=== PATIENT | female | born 1985 | race Two or more races ===

== ENCOUNTER → 2021-10-23 16:10 | Outpatient (BNVA) | payer OTHER, SELFPAY | PROVIDERS: PCP Internal Medicine; Visit Provider Obstetrics & Gynecology | DX: Z13.89 Encounter for screening for other disorder (principal) ==

== ENCOUNTER → 2021-11-05 15:05 | Outpatient (BNVA) | payer OTHER, SELFPAY | PROVIDERS: PCP Internal Medicine; Visit Provider Obstetrics & Gynecology | DX: Z30.432 Encounter for removal of intrauterine contraceptive device (principal) | CPT/HCPCS: 58301; 81025 ==

== ENCOUNTER 2022-04-10 13:04 | Inpatient (IN) | payer OTHER, SELFPAY ==
--- NOTE | ~2022-04-10 | US_ITS ---
EXAMINATION: US PELVIS CLINICAL INFORMATION: Left lower quadrant pain COMPARISON: None TECHNIQUE: Ultrasound of the pelvis is performed using both transabdominal and transvaginal transducers along with Doppler. Transvaginal imaging is performed due to inadequate visualization transabdominally. FINDINGS: Uterus: The uterus is anteverted, retroflexed and measures 9.3 cm in length, 3.7 cm in AP and 4.1 cm in transverse direction. The double wall endometrial thickness is 0.8 cm. The uterus is smooth in contour and has normal myometrial echogenicity. No visible fibroid. There are small nabothian cysts seen in the cervix. The cervix is slightly thickened. Adnexa: Both ovaries are visualized. There is normal color flow to the adnexa. There is no ovarian torsion. There is no pelvic ascites or fluid collection. Right ovary measures 3.1 x 2.6 x 2.9 cm and volume 12.2 mL. There is anechoic simple cyst measuring 2.10 2.0 x 2.1 cm. Left ovary measures 2.7 x 2.6 x 1.6 cm and volume 5.9 mL. There is no free fluid in the cul-de-sac. Incidental note is made of 2 echogenic stones in the left distal ureter/UVJ measuring 0.4 x 0.3 x 0.4 cm and 0.3 x 0.4 x 0.3 cm. US/US pelvic and transvaginal IMPRESSION: Unremarkable uterus. Thickened cervix with nabothian cysts. Simple cyst right ovary. Unremarkable left ovary. 2 echogenic stones in the left UVJ or distal ureter. Simple cyst right ovary.
--- NOTE | ~2022-04-10 | US_ITS ---
EXAMINATION: US PELVIS CLINICAL INFORMATION: Left lower quadrant pain COMPARISON: None TECHNIQUE: Ultrasound of the pelvis is performed using both transabdominal and transvaginal transducers along with Doppler. Transvaginal imaging is performed due to inadequate visualization transabdominally. FINDINGS: Uterus: The uterus is anteverted, retroflexed and measures 9.3 cm in length, 3.7 cm in AP and 4.1 cm in transverse direction. The double wall endometrial thickness is 0.8 cm. The uterus is smooth in contour and has normal myometrial echogenicity. No visible fibroid. There are small nabothian cysts seen in the cervix. The cervix is slightly thickened. Adnexa: Both ovaries are visualized. There is normal color flow to the adnexa. There is no ovarian torsion. There is no pelvic ascites or fluid collection. Right ovary measures 3.1 x 2.6 x 2.9 cm and volume 12.2 mL. There is anechoic simple cyst measuring 2.10 2.0 x 2.1 cm. Left ovary measures 2.7 x 2.6 x 1.6 cm and volume 5.9 mL. There is no free fluid in the cul-de-sac. Incidental note is made of 2 echogenic stones in the left distal ureter/UVJ measuring 0.4 x 0.3 x 0.4 cm and 0.3 x 0.4 x 0.3 cm. US/US pelvic ovarian doppler IMPRESSION: Unremarkable uterus. Thickened cervix with nabothian cysts. Simple cyst right ovary. Unremarkable left ovary. 2 echogenic stones in the left UVJ or distal ureter. Simple cyst right ovary.
--- NOTE | ~2022-04-10 | CT_ITS ---
EXAMINATION: CT ABDOMEN AND PELVIS WITHOUT CONTRAST CLINICAL INFORMATION: Flank pain. Rule out pyelonephritis. COMPARISON: None TECHNIQUE: Multidetector volumetric imaging was performed from the superior aspect of the liver through the pubic symphysis. Sagittal and coronal reformatted images were obtained on the technologist's workstation. This CT examination was performed using dose optimization techniques as appropriate, variously including the following: *Automated exposure control *Adjustment of mA and/or kV according to patient size (this includes techniques or standardized protocols for targeted exams where dose is matched to indication/reason for exam; i.e. extremities or head) *Use of iterative reconstruction technique DLP: 631 mGy-cm FINDINGS: LUNG BASES: The lung bases are clear. The heart size is normal. LIVER, GALLBLADDER, AND BILIARY TREE: The liver is normal in size, shape, and attenuation. No focal hepatic lesion or biliary ductal dilatation is present. The gallbladder is unremarkable with no evidence of radiopaque gallstones, gallbladder wall thickening, or obvious pericholecystic inflammatory changes. PANCREAS: Unremarkable. SPLEEN: Unremarkable. ADRENAL GLANDS: Unremarkable. KIDNEYS AND URETERS: The kidneys are normal in size, shape, and attenuation. There is a 3 mm nonobstructive radiopaque calculi lower pole calyx left kidney. No additional radiopaque calculi seen. There is mild left hydroureteronephrosis secondary to an obstructive 2 mm and 4 mm left UVJ radiopaque calculi. BLADDER: The bladder is nondistended without any bladder wall thickening. GASTROINTESTINAL TRACT: Scattered stool and gas is seen throughout the colon without distention. Few scattered diverticuli seen in the colon. The small bowel loops are normal caliber. Appendix is normal caliber. No free air or free fluid seen. ABDOMINAL WALL: A small lumbar canal hernia containing fat is noted. LYMPH NODES: Normal. VASCULAR: Unremarkable. PELVIC VISCERA: The uterus is anteverted and appears unremarkable. No adnexal mass or free fluid seen. OSSEOUS STRUCTURES: No lytic or sclerotic process seen. CT/CT abdomen pelvis wo IV con IMPRESSION: Two 4 mm and 2 mm obstructive radiopaque calculi left UVJ with mild hydroureteronephrosis. Nonobstructive 3 mm radiopaque calculi lower pole right kidney. Fleischner guidelines were followed.
--- NOTE | ~2022-04-10 | FL_ITS ---
EXAMINATION: XR FLUOROSCOPY WITH IMAGES CLINICAL INFORMATION: Ureteral stone COMPARISON: 04/10/2022 TECHNIQUE: Fluoroscopy performed by Dr Montaño. Fluoroscopy time: 46.5 seconds. Cumulative Dose: 15.45 mGy. Images: 5. FL/FL guidance in OR FINDINGS/IMPRESSION: Again seen are 2 stones within the distal left ureter. Images show cannulation of the left ureter, and placement of a left nephroureteral stent. Please see operative report for additional detail.
[2022-04-10 13:26] VITALS: BP 145/92; PULSE 93; RESP 18; TEMP 36.6; O2SAT 99; BMI 30.2
[2022-04-10 13:56] LABS: MANUAL DIFF FLAG NO
[2022-04-10 13:59] LABS: Basophils Absolute Auto 0.1 X10*3/uL (0.0-0.2); Basophils Percent Auto 0.7 % (0-2); Eosinophils Absolute Auto 0.2 X10*3/uL (0.0-0.4); Eosinophils Percent Auto 1.1 % (0-4); Hematocrit 40.5 % (37.0-47.0); Hemoglobin 13.2 g/dl (12.0-16.0); Imm Gran Abs Auto 0.05 X10*3/uL (0.00-0.03); Imm Gran Pct Auto 0.4 % (0.0-0.4); Lymphocytes Absolute Auto 2.7 X10*3/uL (1.2-4.9); Lymphocytes Percent Auto 19.8 % (20-40); Mean Corpuscular HGB Conc 32.6 g/dl (31.0-35.0); Mean Corpuscular Hemoglobin 30.1 pg (27.0-33.0); Mean Corpuscular Volume 92.3 fL (80.0-98.0); Mean Platelet Volume 10.6 fL (9.4-12.3); Monocytes Percent Auto 7.5 % (2-11); Neutrophils Absolute Auto 9.6 x10*3/uL (2.0-8.3); Neutrophils Percent Auto 70.5 % (45-73); Platelet Count 261 X10*3/uL (160-400); Red Blood Count 4.39 X10*6/uL (4.20-5.50); Red Cell Distribution Width 12.5 % (11.0-16.0); White Blood Count 13.6 X10*3/uL (4.8-10.8)
[2022-04-10 14:00] LABS: Appearance Urine Clear; Color Urine Yellow; Glucose Urine UA Negative (Negative); Leukocyte Esterase Urine Small (1+) (Negative); Nitrite Urine Negative (Negative); PH 5.5 (5.0-9.0); UMIC TRIGGER UACC YES; Urine Blood Large (3+) (Negative); Urine Ketones Negative (Negative); Urine Protein Trace mg/dL (Neg-Trace)
[2022-04-10 14:02] LABS: UPreg QC Valid YES; Urine Pregnancy NEGATIVE (NEGATIVE)
[2022-04-10 14:13] LABS: Bacteria Urine None Seen (None Seen); Hyaline Casts Urine 0-2 /LPF (0-2); RBC Urine >20 /HPF (0-2); Squamous Epithelial Cell Urine 0-2 /HPF (0-2); UACC Culture Trigger YES
[2022-04-10 14:17] LABS: Alanine Aminotransferase 11 U/L (0-31); Albumin Level 4.3 g/dL (3.5-5.0); Alkaline Phosphatase 64 U/L (39-117); Anion Gap 13 (12-20); Aspartate Amino Transferase 17 U/L (5-31); Bilirubin Direct 0.2 mg/dL (0.0-0.5); Bilirubin Total 0.3 mg/dL (0.0-1.0); Blood Urea Nitrogen 13 mg/dL (9-16); Calcium 9.2 mg/dL (8.4-10.2); Carbon Dioxide 24 mmol/L (22-29); Chloride 106 mmol/L (96-108); Creatinine Clr Calc Pharmacy 102.5; Estimated Glomerular Filt Rate > 60; Glucose Random 84 mg/dL (60-115); Lipase 9 U/L (8-78); Sodium 139 mmol/L (135-145); Total Protein 7.2 g/dL (6.5-8.0)
[2022-04-10 16:20] VITALS: BP 124/80; PULSE 64; RESP 18; TEMP 36.5; O2SAT 100
--- NOTE | 2022-04-10 17:11 | ED.FEMALEGU ---
HPI - Female Genitourinary General Chief complaint: Urogenital-Female Stated complaint: kidney pain Time Seen by Provider: 04/10/22 16:58 Source: patient Mode of arrival: ambulatory Limitations: no limitations History of Present Illness HPI Narrative: 36 year old female history of anxiety, asthma, eczema, HPV, ovarian cysts presenting with 3-4 weeks of severe pelvic pain and b/l flank pain worsening over past few days. Patient reports b/l flank pain that is constant in nature described as an aching pain. She also reports what she describes as LLQ pain and pelvic pain that is 8/10 in intensity severe sharp and intermittent. Pain is so severe at times she has episodes of nausea. At times, worsened with intercourse. Reports urine is darker than usual and cloudy. Denies dysuria and frequency. Tells me no hx of kidney stones or pylo. Tells me this doesn't feel like her typical ovarian cyst pain. Reports poor po intake due to n/v and pain, had cranberry juice today. Denies fevers, chills, cp, sob. No concerns for STDs or Related Data Home Medications Medication Instructions Recorded Confirmed levonorgestrel 20 mcg/24 hours (8 intrauterine 06/19/20 06/19/20 yrs) 52 mg intrauterine device (Mirena) Previous Rx's Medication Instructions Recorded albuterol sulfate 90 mcg/actuation 1 inh inhalation QID PRN shortness 06/19/20 aerosol inhaler (ProAir HFA) of breath or wheezing #8.5 grams multivitamin 1 tab PO DAILY #90 tabs 07/24/20 Allergies Allergy/AdvReac Type Severity Reaction Status Date / Time latex Allergy Unknown unknown Verified 10/23/21 16:10 Review of Systems Review of Systems: Constitutional : No Weight loss, No Fever, No Chills, No Fatigue, No Malaise ENT/Mouth : No sore throat, No Rhinorrhea Eyes: No Eye Pain, No Swelling, No Redness Cardiovascular : No Chest Pain, No SOB, No Dyspnea on Exertion, No Orthopnea, No Edema, No Palpitations Respiratory : No Cough, No Sputum, No Wheezing Gastrointestinal : No Nausea, + Vomiting, No Diarrhea, No Constipation, No abdominal Pain, No Hematochezia, No Melena Genitourinary : No Dysuria, No Urinary Frequency, No Hematuria, + pelvic pain Musculoskeletal : No joint pain, No Myalgias, No Joint Swelling Skin : No Skin Lesions, No rash Neuro : No Weakness, No Numbness, No Dizziness, No Headache Psych : No Anxiety/Panic, No Depression All other systems reviewed and are negative Yes all other systems are reviewed and are negative [facility] Past Medical History Attestation statement: The following information was validated with the patient. Source: old records reviewed and nursing notes reviewed Medical History Anxiety disorder Cigarette smoker motivated to quit Eczema of both hands Mild intermittent asthma without complication Surgical History History of section Family History Family History Father Medical history non-contributory Mother Hypothyroidism CVD (cardiovascular disease) Maternal Grandfather Diabetes mellitus Maternal Grandmother Diabetes mellitus Paternal Grandmother Diabetes mellitus Paternal Grandfather Diabetes mellitus Maternal Aunt Cerebral aneurysm Maternal Uncle Skin cancer Brother No problems noted. Brother No problems noted. Sister No problems noted. Son No problems noted. Social History Social History Alcohol intake: current Patient Tobacco Use Status: Current someday Tobacco user Cigarettes Per Day: 1 Advance Directives: No Advance Directives Information Provided: No Patient : No Physical Exam Vital Signs: Vital Signs: Last Vital Signs Temp 97.7 F 04/10/22 18:36 Pulse 75 04/10/22 18:36 Resp 14 04/10/22 18:36 BP 137/77 04/10/22 18:36 Pulse Ox 95 04/10/22 18:36 O2 Del Method 04/10/22 18:36 BMI result Body Mass Index 30.2 VSS Appearance: Alert.? Oriented X3.? No acute distress.? Head: Normocephalic, atraumatic, no step-offs or deformities Eyes: Pupils equal, round and reactive to light.? ENT: Pharynx normal.??External ears normal, TMs normal bilaterally and EAC's normal. No pain with manipulation of external ears bilaterally. No mastoid tenderness. Neck: Normal inspection.? Neck supple.? CVS: Normal heart rate and rhythm.? Pulses normal.? Respiratory: No respiratory distress.? Breath sounds normal.? Abdomen: Soft and + LLQ tenderness.? Skin: Skin warm and dry.? Normal skin color.? Normal skin turgor.? Extremities: No lower extremity edema.? No calf ttp. 5/5 strength to bilateral upper and lower extremities Back: No midline tenderness, no C-spine tenderness, full range of motion, no CVA tenderness bilaterally Neuro: Oriented X 3.? No motor deficit.? No sensory deficit. CN 2-12 intact Course Reevaluation(s) Reevaluation #1: CBC with slight leukocytosis likely reactive to nausea and vomiting, chemistry with no acute electrolyte abnormalities requiring intervention. HCG negative in urine negative. UA without infection. Pending US and CT abd and pelvis. Time: 18:09 Reevaluation #2: Ultrasound pelvic transvaginal with thickened cervix with nabothian cysts, simple cyst to the right ovary, unremarkable left ovary. Two echogenic stones in the left UVJ or distal ureter. No signs of ovarian torsion. CT of the abdomen and pelvis with 2 4 mm and 2 mm obstructive the radiopaque colic you lie in the left UVJ with mild hydroureter nephrosis. There is also a 3 mm stone in the lower pole the right kidney. At this time patient will be admitted to the hospitalist team for pain management, and further evaluation. Time: 19:52 MDM - Female Genitourinary MDM Narrative Medical decision making narrative: 1710 36 yo female presents with LLQ/ pelvic pain and b/l flank pain X 3-4 weeks. Was encouraged to come in by her OBGYN Dr. Healy PE- with LLQ tenderness on exam Differentials include kidney stones, diverticulitis, uti, endometriosis, ovarian cysts. Unlikely torsion, ruptured cyst, ectopic. Plan- labs, urine, imaging. Medical Records Attestation: I reviewed the patient's medical records. Lab Data Attestation: I reviewed the patient's lab results. Result diagrams: 04/10/22 13:51 04/10/22 13:51 Labs: Lab Results 04/10/22 04/10/22 04/10/22 Range/Units 13:51 13:51 13:51 WBC 13.6 H (4.8-10.8) X10*3/uL RBC 4.39 (4.20-5.50) X10*6/uL Hgb 13.2 (12.0-16.0) g/dl Hct 40.5 (37.0-47.0) % MCV 92.3 (80.0-98.0) fL MCH 30.1 (27.0-33.0) pg MCHC 32.6 (31.0-35.0) g/dl RDW 12.5 (11.0-16.0) % Plt Count 261 (160-400) X10*3/uL MPV 10.6 (9.4-12.3) fL Immature Gran % (Auto) 0.4 (0.0-0.4) % Neut % (Auto) 70.5 (45-73) % Lymph % (Auto) 19.8 L (20-40) % [place] % (Auto) 7.5 (2-11) % Eos % (Auto) 1.1 (0-4) % Baso % (Auto) 0.7 (0-2) % Lymph # (Auto) 2.7 (1.2-4.9) X10*3/uL [place] # (Auto) 1.0 (0.1-1.2) X10*3/uL Eos # (Auto) 0.2 (0.0-0.4) X10*3/uL Baso # (Auto) 0.1 (0.0-0.2) X10*3/uL Abs Immat Gran (auto) 0.05 H (0.00-0.03) X10*3/uL Absolute Neuts (auto) 9.6 H (2.0-8.3) x10*3/uL Absolute Nucleated RBC 0.000 (0.0-0.012) X10*3/uL Nucleated RBC % (auto) 0.0 (0.0-0.2) /100WBC Sodium 139 (135-145) mmol/L Potassium 4.0 (3.3-5.1) mmol/L Chloride 106 (96-108) mmol/L Carbon Dioxide 24 (22-29) mmol/L Anion Gap 13 (12-20) BUN 13 (9-16) mg/dL Creatinine 0.79 (0.5-1.4) mg/dL Estim Creat Clear Calc 102.5 Estimated GFR > 60 Random Glucose 84 (60-115) mg/dL Calcium 9.2 (8.4-10.2) mg/dL Total Bilirubin 0.3 (0.0-1.0) mg/dL Direct Bilirubin 0.2 (0.0-0.5) mg/dL AST 17 (5-31) U/L ALT 11 (0-31) U/L Alkaline Phosphatase 64 (39-117) U/L Total Protein 7.2 (6.5-8.0) g/dL Albumin 4.3 (3.5-5.0) g/dL Lipase 9 (8-78) U/L Beta HCG, Quant < 2 mIU/mL Urine Color Yellow Urine Appearance Clear Urine pH 5.5 (5.0-9.0) Ur Specific [place] 1.020 (1.005-1.025) Urine Protein Trace (Neg-Trace) mg/dL Urine Glucose (UA) Negative (Negative) mg/dL Urine Ketones Negative (Negative) mg/dL Urine Blood Large (3+) H (Negative) Urine Nitrite Negative (Negative) Ur Leukocyte Esterase Small (1+) H (Negative) Urine RBC >20 H (0-2) /HPF Urine WBC 11-20 H (0-5) /HPF Ur Squamous Epith Cells 0-2 (0-2) /HPF Urine Bacteria None Seen (None Seen) Hyaline Casts 0-2 (0-2) /LPF Urine Test (NEGATIVE) 04/10/22 Range/Units 13:51 WBC (4.8-10.8) X10*3/uL RBC (4.20-5.50) X10*6/uL Hgb (12.0-16.0) g/dl Hct (37.0-47.0) % MCV (80.0-98.0) fL MCH (27.0-33.0) pg MCHC (31.0-35.0) g/dl RDW (11.0-16.0) % Plt Count (160-400) X10*3/uL MPV (9.4-12.3) fL Immature Gran % (Auto) (0.0-0.4) % Neut % (Auto) (45-73) % Lymph % (Auto) (20-40) % [place] % (Auto) (2-11) % Eos % (Auto) (0-4) % Baso % (Auto) (0-2) % Lymph # (Auto) (1.2-4.9) X10*3/uL [place] # (Auto) (0.1-1.2) X10*3/uL Eos # (Auto) (0.0-0.4) X10*3/uL Baso # (Auto) (0.0-0.2) X10*3/uL Abs Immat Gran (auto) (0.00-0.03) X10*3/uL Absolute Neuts (auto) (2.0-8.3) x10*3/uL Absolute Nucleated RBC (0.0-0.012) X10*3/uL Nucleated RBC % (auto) (0.0-0.2) /100WBC Sodium (135-145) mmol/L Potassium (3.3-5.1) mmol/L Chloride (96-108) mmol/L Carbon Dioxide (22-29) mmol/L Anion Gap (12-20) BUN (9-16) mg/dL Creatinine (0.5-1.4) mg/dL Estim Creat Clear Calc Estimated GFR Random Glucose (60-115) mg/dL Calcium (8.4-10.2) mg/dL Total Bilirubin (0.0-1.0) mg/dL Direct Bilirubin (0.0-0.5) mg/dL AST (5-31) U/L ALT (0-31) U/L Alkaline Phosphatase (39-117) U/L Total Protein (6.5-8.0) g/dL Albumin (3.5-5.0) g/dL Lipase (8-78) U/L Beta HCG, Quant mIU/mL Urine Color Urine Appearance Urine pH (5.0-9.0) Ur Specific [place] (1.005-1.025) Urine Protein (Neg-Trace) mg/dL Urine Glucose (UA) (Negative) mg/dL Urine Ketones (Negative) mg/dL Urine Blood (Negative) Urine Nitrite (Negative) Ur Leukocyte Esterase (Negative) Urine RBC (0-2) /HPF Urine WBC (0-5) /HPF Ur Squamous Epith Cells (0-2) /HPF Urine Bacteria (None Seen) Hyaline Casts (0-2) /LPF Urine Test NEGATIVE (NEGATIVE) Critical Care Time Critical Care Time Critical Care Time: No Discharge Plan Discharge Clinical Impression: Acute flank pain, Pelvic pain, Nausea & vomiting, Kidney stone Patient Disposition: Admitted As Inpatient Instructions: Acute Nausea and Vomiting (ED), Flank Pain (ED), Pelvic Pain (ED) Additional Instructions: Take your medications as prescribed. If you were prescribed antibiotics today, it is important that you take your medication to their entirety, do not skip any doses, do not finish them early. Follow-up with your primary care provider this week. Return to the emergency department with new or worsening symptoms. Such as fevers, chills, chest pain, shortness of breath, nausea, vomiting, dizziness, headache, vision changes, lethargy In case of emergency call 911 Prescriptions: No Action Mirena 20 mcg/24 hours (6 yrs) 52 mg intrauterine device intrauterine albuterol sulfate [ProAir HFA] 90 mcg/actuation HFA aerosol inhaler 1 inh inhalation QID PRN (Reason: shortness of breath or wheezing) Qty: 8.5 1RF multivitamin Tablet 1 tab PO DAILY Qty: 90 1RF Referrals: Olive Zimmer MD [Primary Care Provider] - 2 days
[2022-04-10 17:57] LABS: HCG Quantitative < 2 mIU/mL
[2022-04-10 18:36] VITALS: BP 137/77; PULSE 75; RESP 14; TEMP 36.5; O2SAT 95
[2022-04-10] MEDS: Ketorolac Tromethamine 15 MG/ML VIAL 30 MG IVPUSH (19:00)
[2022-04-10] MEDS: 0.9 % Sodium Chloride 1,000 ML 999 ML IV ×2 (19:00→19:47)
[2022-04-10] MEDS: predniSONE 20 MG TABLET PO (19:47)
[2022-04-10] MEDS: Tamsulosin HCL 0.4 MG CAPSULE PO (19:47)
--- NOTE | 2022-04-10 20:20 | PM.IMHP ---
History of Present Illness Date of Service: 04/10/22 Attending physician on admission: Manny Patricia Chief Complaint: llq/left flank pain 36-year-old female with history of ovarian cysts, mild intermittent asthma, 1cigarette per day trying to quit, and depression/anxiety presented to the ED at the recommendation of walk-in clinic and behavioral health associate ([place]) for evaluation of intermittent 8/10 left lower quadrant/left flank pain ongoing for 3-4 weeks. Over the last 2 days she states pain has worsened and has become more constant. She has noted nausea as well as multiple episodes of vomiting yesterday but denies any vomiting today. She states her urine has been dark but denies any dunia blood. Endorses burning at the end of mictrition and dyspareunia. No abdnormal vaginal discharge or bleeding. No fevers, chills. No history STI. In ED, VSS. WBC 13.6. Renal function and electrolyte normal. UA with 3+blood, 1+leuks, nitrite neg, negative bacteria. Urine negative. Pelvic/transvaginal u/s with doppler showing thickened cervix with nabothian cysts, simple cyst right ovary, unremarkable left ovary. No torsion with normal color flow to adnexa. CT abdomen/pelvis shows 2 4 mm and 2 mm obstructive calculi in the left UVJ with mild hydroureteronephrosis as well as nonobstructive 3 mm radiopaque calculi in the lower pole right kidney. Given ketorolac, flomax, prednisone, and 1L NS. Review of Systems Review of Systems: General: No fevers, malaise, unintentional weight loss Cardiovascular: No chest pain, palpitations, or leg edema Respiratory: No shortness of breath, wheezing, cough GI: +llq pain, +n/v. No diarrhea, constipation, melena, hematochezia : +dysuria, + hematuria. No increased urinary frequency urgency [place] T[employer] Helper:+ dyspareunia. No abnormal vaginal discharge or bleeding Neuro: No headaches, weakness, paresthesias Skin: No rashes or lesions [facility] Medical History Anxiety disorder Cigarette smoker motivated to quit Eczema of both hands Mild intermittent asthma without complication Family History Father Medical history non-contributory Mother Hypothyroidism CVD (cardiovascular disease) Maternal Grandfather Diabetes mellitus Maternal Grandmother Diabetes mellitus Paternal Grandmother Diabetes mellitus Paternal Grandfather Diabetes mellitus Maternal Aunt Cerebral aneurysm Maternal Uncle Skin cancer Brother No problems noted. Brother No problems noted. Sister No problems noted. Son No problems noted. Surgical History History of section Social History Alcohol intake: current Patient Tobacco Use Status: Current someday Tobacco user Cigarettes Per Day: 1 Advance Directives: No Advance Directives Information Provided: No Patient : No Meds Allergies Allergy/AdvReac Type Severity Reaction Status Date / Time latex Allergy Unknown unknown Verified 10/23/21 16:10 Active Medications: Current Medications Acetaminophen (Acetaminophen 325 Mg Tablet) 650 mg PO Q6H PRN PRN Reason: Pain, Mild (Pain Scale 1-3) Docusate Sodium (Docusate Sodium 100 Mg Capsule) 100 mg PO DAILY PRN PRN Reason: Constipation Ketorolac Tromethamine (Ketorolac Tromethamine 30 Mg/Ml Vial) 30 mg IVPUSH Q6H PRN PRN Reason: Pain, Moderate (Pain Scale 4-6 Stop: 04/15/22 20:13 Ondansetron HCl (Ondansetron Hcl 4 Mg/2 Ml Vial) 4 mg IVPUSH Q8H PRN PRN Reason: Nausea and Vomiting Oxycodone HCl (Oxycodone Hcl Immed Release 5 Mg Tablet) 5 mg PO Q6H PRN PRN Reason: Pain, Severe (Pain Scale 7-10) Pharmacy Consult (Consult Rx Perform Med Rec) 1 each MISCELLANE ONCE PRN PRN Reason: Consult order Sodium Chloride (0.9 % Sodium Chloride Flush 3 Ml Syringe) 3 ml IVFLUSH QSHIFT CHADD Tamsulosin HCl (Tamsulosin Hcl 0.4 Mg Capsule) 0.4 mg PO DAILY CHADD Physical Exam Vital Signs and Narrative: Vital Signs: Last Vital Signs Temp 97.7 F 04/10/22 18:36 Pulse 75 04/10/22 18:36 Resp 14 04/10/22 18:36 BP 137/77 04/10/22 18:36 Pulse Ox 95 04/10/22 18:36 O2 Del Method 04/10/22 18:36 BMI result Body Mass Index 30.2 Results Labs CBC and Chem 7: 04/10/22 13:51 04/10/22 13:51 Labs: Laboratory Results - last 24 hr 04/10/22 04/10/22 04/10/22 13:51 13:51 13:51 MCV 92.3 MCH 30.1 MCHC 32.6 RDW 12.5 Plt Count 261 MPV 10.6 Immature Gran % (Auto) 0.4 Neut % (Auto) 70.5 Lymph % (Auto) 19.8 L [place] % (Auto) 7.5 Eos % (Auto) 1.1 Baso % (Auto) 0.7 Lymph # (Auto) 2.7 [place] # (Auto) 1.0 Eos # (Auto) 0.2 Baso # (Auto) 0.1 Abs Immat Gran (auto) 0.05 H Absolute Neuts (auto) 9.6 H Absolute Nucleated RBC 0.000 Nucleated RBC % (auto) 0.0 Anion Gap 13 Estim Creat Clear Calc 102.5 Estimated GFR > 60 Random Glucose 84 Calcium 9.2 Total Bilirubin 0.3 Direct Bilirubin 0.2 AST 17 ALT 11 Alkaline Phosphatase 64 Total Protein 7.2 Albumin 4.3 Lipase 9 Beta HCG, Quant < 2 Urine Color Yellow Urine Appearance Clear Urine pH 5.5 Ur Specific [place] 1.020 Urine Protein Trace Urine Glucose (UA) Negative Urine Ketones Negative Urine Blood Large (3+) H Urine Nitrite Negative Ur Leukocyte Esterase Small (1+) H Urine RBC >20 H Urine WBC 11-20 H Ur Squamous Epith Cells 0-2 Urine Bacteria None Seen Hyaline Casts 0-2 Urine Test 04/10/22 13:51 MCV MCH MCHC RDW Plt Count MPV Immature Gran % (Auto) Neut % (Auto) Lymph % (Auto) [place] % (Auto) Eos % (Auto) Baso % (Auto) Lymph # (Auto) [place] # (Auto) Eos # (Auto) Baso # (Auto) Abs Immat Gran (auto) Absolute Neuts (auto) Absolute Nucleated RBC Nucleated RBC % (auto) Anion Gap Estim Creat Clear Calc Estimated GFR Random Glucose Calcium Total Bilirubin Direct Bilirubin AST ALT Alkaline Phosphatase Total Protein Albumin Lipase Beta HCG, Quant Urine Color Urine Appearance Urine pH Ur Specific [place] Urine Protein Urine Glucose (UA) Urine Ketones Urine Blood Urine Nitrite Ur Leukocyte Esterase Urine RBC Urine WBC Ur Squamous Epith Cells Urine Bacteria Hyaline Casts Urine Test NEGATIVE Imaging Radiologist's Impressions: Impressions Doppler Study Ultrasound 04/10/22 17:48 IMPRESSION: Unremarkable uterus. Thickened cervix with nabothian cysts. Simple cyst right ovary. Unremarkable left ovary. 2 echogenic stones in the left UVJ or distal ureter. Simple cyst right ovary. Pelvic/Transvag US 04/10/22 17:48 IMPRESSION: Unremarkable uterus. Thickened cervix with nabothian cysts. Simple cyst right ovary. Unremarkable left ovary. 2 echogenic stones in the left UVJ or distal ureter. Simple cyst right ovary. Abdomen/Pelvis CT 04/10/22 18:35 IMPRESSION: Two 4 mm and 2 mm obstructive radiopaque calculi left UVJ with mild hydroureteronephrosis. Nonobstructive 3 mm radiopaque calculi lower pole right kidney. Fleischner guidelines were followed. Assessment and Plan (1) Obstructive uropathy: Status: Acute (2) Abdominal pain: Status: Acute (3) Nausea & vomiting: Status: Acute Plan 36-year-old female with history of ovarian cysts, mild intermittent asthma, 1cigarette per day trying to quit, and depression/anxiety to be observed for obstructive nephrolithiasis. #Obstructive uropathy -CT abdomen/pelvis showing 2 left-sided obstructive 4 mm and 2 mm calculi of the UVJ with mild hydroureteronephrosis -pain management with Toradol and oxycodone p.r.n. -ondansetron p.r.n. for nausea/vomiting -received 1 L NS in ED. Encourage p.o. fluids -Flomax and prednisone given in ED. Continue Flomax daily -UA not indicative of UTI at this time. Urine culture pending -leukocytosis 13.1 likely reactive secondary to nausea/vomiting. Repeat CBC am -consider Urology consult if no improvement in symptoms #LLQ/pelvis pain with dyspareunia -has history of ovarian cyst. Transvaginal/pelvic U.S. showing only right-sided simple cyst. No ovarian torsion -pain likely secondary to renal calculi -rule out coronary and chlamydia. Cultures ordered # mild intermittent asthma -albuterol p.r.n. # depression/anxiety-stable # cigarette smoker -working on quitting. Down to 1 cigarette per day -counseling offered DVT prophylaxis-mechanical and ambulation Full code Quality Stroke Does the patient have a stroke diagnosis?: No VTE Prior VTE?: No VTE Risk Level:: Medical - low VTE Device Contraindication: Treatment Not Indicated VTE Drug Contraindication: N/A - Med Ordered
--- NOTE | 2022-04-10 20:37 | PHA.MEDREC ---
Pharmacy Consult ? Medication Reconciliation Pharmacy has completed the medication reconciliation.
[2022-04-10 21:35] VITALS: BP 136/89; PULSE 76; RESP 18; TEMP 36.4; O2SAT 98
--- NOTE | 2022-04-10 21:43 | PC.NURSE ---
report to Patricia MYLES will transport patient once covid results
[2022-04-10 21:54] LABS: COVID-19 Test Negative (Negative)
[2022-04-10 22:28] VITALS: BMI 32.5
[2022-04-10] MEDS: 0.9 % Sodium Chloride Flush 3 ML SYRINGE IVFLUSH (23:48)
[2022-04-11] VITALS (12 sets, daily range): BP systolic 105–139; BP diastolic 56–90; PULSE 63–96; RESP 16–20; TEMP 36.2–37; O2SAT 96–99; BMI 31.5
[2022-04-11] MEDS: Ketorolac Tromethamine 15 MG/ML VIAL IVPUSH ×2 (00:09→07:27)
[2022-04-11 07:14] LABS: MANUAL DIFF FLAG NO
[2022-04-11 07:18] LABS: Basophils Absolute Auto 0.1 X10*3/uL (0.0-0.2); Basophils Percent Auto 0.4 % (0-2); Eosinophils Percent Auto 0.1 % (0-4); Hematocrit 37.6 % (37.0-47.0); Hemoglobin 12.3 g/dl (12.0-16.0); Imm Gran Abs Auto 0.04 X10*3/uL (0.00-0.03); Imm Gran Pct Auto 0.3 % (0.0-0.4); Lymphocytes Absolute Auto 1.9 X10*3/uL (1.2-4.9); Lymphocytes Percent Auto 14.4 % (20-40); Mean Corpuscular HGB Conc 32.7 g/dl (31.0-35.0); Mean Corpuscular Hemoglobin 30.1 pg (27.0-33.0); Mean Corpuscular Volume 92.2 fL (80.0-98.0); Mean Platelet Volume 11.7 fL (9.4-12.3); Monocytes Absolute Auto 0.9 X10*3/uL (0.1-1.2); Monocytes Percent Auto 6.5 % (2-11); Neutrophils Absolute Auto 10.3 x10*3/uL (2.0-8.3); Neutrophils Percent Auto 78.3 % (45-73); Platelet Count 243 X10*3/uL (160-400); Red Blood Count 4.08 X10*6/uL (4.20-5.50); Red Cell Distribution Width 12.5 % (11.0-16.0); White Blood Count 13.2 X10*3/uL (4.8-10.8)
[2022-04-11] MEDS: Tamsulosin HCL 0.4 MG CAPSULE PO (07:27)
[2022-04-11] MEDS: ondansetron HCL 4 MG/2 ML VIAL IVPUSH ×2 (07:27→18:07)
[2022-04-11] MEDS: 0.9 % Sodium Chloride Flush 3 ML SYRINGE IVFLUSH ×2 (07:27→19:25)
--- NOTE | 2022-04-11 08:30 | P.PNIM_ITS ---
Subjective Subjective Date of Service: 04/11/22 Interval History: f/u kidney stone with abd pain interval history: still with pain, n/v Review of Systems +nausea abd pain no fever Physical Exam Vital Signs: Vital Signs: Last Vital Signs Temp 97.3 F 04/11/22 07:17 Pulse 85 04/11/22 07:17 Resp 18 04/11/22 07:17 BP 133/79 04/11/22 07:17 Pulse Ox 97 04/11/22 07:17 O2 Del Method 04/11/22 07:17 BMI result Body Mass Index 32.5 Const: Other: General: AO X 3, no acute distress Resp: CTA bilateral CVS: S1,S2,RRR GI: +BS, NT, no distention Skin: No rash Neuro: motor grossly intact Psych: appropriate affect Objective Data Active Medications Acetaminophen (Acetaminophen 325 Mg Tablet) 650 mg PO Q6H PRN PRN Reason: Pain, Mild (Pain Scale 1-3) Docusate Sodium (Docusate Sodium 100 Mg Capsule) 100 mg PO DAILY PRN PRN Reason: Constipation Lactated Ringer's (Lr) 1,000 mls @ 80 mls/hr IVCONT .[id number] [facility] Ketorolac Tromethamine (Ketorolac Tromethamine 15 Mg/Ml Vial) 15 mg IVPUSH Q6H PRN PRN Reason: Pain, Moderate (Pain Scale 4-6 Last Admin: 04/11/22 07:27 Dose: 15 mg Documented By: COTEMA Ondansetron HCl (Ondansetron Hcl 4 Mg/2 Ml Vial) 4 mg IVPUSH Q8H PRN PRN Reason: Nausea and Vomiting Last Admin: 04/11/22 07:27 Dose: 4 mg Documented By: COTEMA Oxycodone HCl (Oxycodone Hcl Immed Release 5 Mg Tablet) 5 mg PO Q6H PRN PRN Reason: Pain, Severe (Pain Scale 7-10) Pharmacy Consult (Consult Rx Perform Med Rec) 1 each MISCELLANE ONCE PRN PRN Reason: Consult order Sodium Chloride (0.9 % Sodium Chloride Flush 3 Ml Syringe) 3 ml IVFLUSH [facility] Last Admin: 04/11/22 07:27 Dose: 3 ml Documented By: COTEMA Tamsulosin HCl (Tamsulosin Hcl 0.4 Mg Capsule) 0.4 mg PO DAILY [facility] Last Admin: 04/11/22 07:27 Dose: 0.4 mg Documented By: GEOFFREY Labs CBC & Chem 7: 04/11/22 06:40 04/10/22 13:51 Labs: Laboratory Results - last 24 hr 04/10/22 04/10/22 04/10/22 13:51 13:51 13:51 MCV 92.3 MCH 30.1 MCHC 32.6 RDW 12.5 Plt Count 261 MPV 10.6 Immature Gran % (Auto) 0.4 Neut % (Auto) 70.5 Lymph % (Auto) 19.8 L [place] % (Auto) 7.5 Eos % (Auto) 1.1 Baso % (Auto) 0.7 Lymph # (Auto) 2.7 [place] # (Auto) 1.0 Eos # (Auto) 0.2 Baso # (Auto) 0.1 Abs Immat Gran (auto) 0.05 H Absolute Neuts (auto) 9.6 H Absolute Nucleated RBC 0.000 Nucleated RBC % (auto) 0.0 Anion Gap 13 Estim Creat Clear Calc 102.5 Estimated GFR > 60 Random Glucose 84 Calcium 9.2 Total Bilirubin 0.3 Direct Bilirubin 0.2 AST 17 ALT 11 Alkaline Phosphatase 64 Total Protein 7.2 Albumin 4.3 Lipase 9 Beta HCG, Quant < 2 Urine Color Yellow Urine Appearance Clear Urine pH 5.5 Ur Specific [place] 1.020 Urine Protein Trace Urine Glucose (UA) Negative Urine Ketones Negative Urine Blood Large (3+) H Urine Nitrite Negative Ur Leukocyte Esterase Small (1+) H Urine RBC >20 H Urine WBC 11-20 H Ur Squamous Epith Cells 0-2 Urine Bacteria None Seen Hyaline Casts 0-2 Urine Test COVID-19 (KRISTIN) COVID-19 Clin Com 04/10/22 04/10/22 04/11/22 13:51 21:33 06:40 MCV 92.2 MCH 30.1 MCHC 32.7 RDW 12.5 Plt Count 243 MPV 11.7 Immature Gran % (Auto) 0.3 Neut % (Auto) 78.3 H Lymph % (Auto) 14.4 L [place] % (Auto) 6.5 Eos % (Auto) 0.1 Baso % (Auto) 0.4 Lymph # (Auto) 1.9 [place] # (Auto) 0.9 Eos # (Auto) 0.0 Baso # (Auto) 0.1 Abs Immat Gran (auto) 0.04 H Absolute Neuts (auto) 10.3 H Absolute Nucleated RBC 0.000 Nucleated RBC % (auto) 0.0 Anion Gap Estim Creat Clear Calc Estimated GFR Random Glucose Calcium Total Bilirubin Direct Bilirubin AST ALT Alkaline Phosphatase Total Protein Albumin Lipase Beta HCG, Quant Urine Color Urine Appearance Urine pH Ur Specific [place] Urine Protein Urine Glucose (UA) Urine Ketones Urine Blood Urine Nitrite Ur Leukocyte Esterase Urine RBC Urine WBC Ur Squamous Epith Cells Urine Bacteria Hyaline Casts Urine Test NEGATIVE COVID-19 (KRISTIN) Negative COVID-19 Clin Com See Note Assessment and Plan (1) Obstructive uropathy: Status: Acute (2) Acute flank pain: Status: Acute (3) Kidney stone: Status: Acute Plan 36-year-old female with history of ovarian cysts, mild intermittent asthma, 1cigarette per day trying to quit, and depression/anxiety to be observed for obstructive nephrolithiasis. #Obstructive uropathy -CT abdomen/pelvis showing 2 left-sided obstructive 4 mm and 2 mm calculi of the UVJ with mild hydroureteronephrosis -pain management with Toradol and oxycodone p.r.n. -ondansetron p.r.n. for nausea/vomiting -IVF -Flomax and prednisone given in ED.? Continue Flomax daily -UA not indicative of UTI at this time.? Urine culture pending -leukocytosis 13.1 likely reactive secondary to nausea/vomiting. -Urology consult, NPO in the event she should need surgery #LLQ/pelvis pain with dyspareunia -has history of ovarian cyst.? Transvaginal/pelvic U.S. showing only right-sided simple cyst.? No ovarian torsion -pain likely secondary to renal calculi -rule out coronary and chlamydia.? Cultures ordered # mild intermittent asthma -albuterol p.r.n. # depression/anxiety-stable # cigarette smoker -working on quitting.? Down to 1 cigarette per day -counseling offered DVT prophylaxis-mechanical and ambulation Full code need for inaptient: obstructive kidney stone that may need intervention Quality Stroke Does the patient have a stroke diagnosis?: No VTE Prior VTE?: No VTE Risk Level:: Medical - low VTE Device Contraindication: Treatment Not Indicated VTE Drug Contraindication: N/A - Med Ordered
[2022-04-11] MEDS: Lactated Ringers 1,000 ML 80 ML IVCONT (08:35)
--- NOTE | 2022-04-11 09:33 | P.CNUR_ITS ---
History of Present Illness Consult details Consult date: 04/11/22 Narrative: Kathrin is a 36 year old female history of anxiety, asthma, eczema, HPV, ovarian cysts presenting with 3-4 weeks of severe pelvic pain and b/l flank pain worsening over past few days. Reports urine is darker than usual and cloudy. Denies dysuria and frequency.? Denies previous kidney stones. Reports poor po intake due to n/v and pain. Denies fevers, chills, cp, sob. Pertinent CT Findings: Two 4 mm and 2 mm obstructive radiopaque calculi left UVJ with mild hydroureteronephrosis.? Nonobstructive 3 mm radiopaque calculi? lower pole right kidney.? Review of Systems Review of Systems: 10 point ROS negative other than stated in HPI [facility] Past Medical History Medical History Anxiety disorder Cigarette smoker motivated to quit Eczema of both hands Mild intermittent asthma without complication Family History Family History Father Medical history non-contributory Mother Hypothyroidism CVD (cardiovascular disease) Maternal Grandfather Diabetes mellitus Maternal Grandmother Diabetes mellitus Paternal Grandmother Diabetes mellitus Paternal Grandfather Diabetes mellitus Maternal Aunt Cerebral aneurysm Maternal Uncle Skin cancer Brother No problems noted. Brother No problems noted. Sister No problems noted. Son No problems noted. Surgical History Surgical History History of section Social History Social History Household Members: Spouse Housing: Apartment Do you presently have visiting nurse or other home services: No Alcohol intake: current Patient Tobacco Use Status: Current everyday Tobacco user Cigarettes Per Day: 1 Smoked in Last 30 Days: Yes Patient Interested in Nicotine Replacement: No Patient Given Instructions on How to Stop Smoking: No Second Hand Smoke Exposure: No Use of substances other than those prescribed or required for medical reasons: No Substance Use Frequency: Socially Currently Displaying Signs/Symptoms of Drug Intoxication Withdrawal: No Have you been hit, kicked, punched, or otherwise hurt by someone within the past year? If so, by whom?: No Do you feel safe in your current relationship?: Yes Is there a partner from a previous relationship who is making you feel unsafe now?: No Are you made to feel afraid or neglected: No Advance Directives: No Advance Directives Information Provided: No Do you have thoughts of harming others: None Do you have a plan to hurt others: No Plan Recently lost weight without trying: No Nutrition Risks: No Nutritional Risk Patient : No : No Meds Allergies Allergy/AdvReac Type Severity Reaction Status Date / Time latex Allergy Unknown unknown Verified 10/23/21 16:10 Active Medications: Current Medications Acetaminophen (Acetaminophen 325 Mg Tablet) 650 mg PO Q6H PRN PRN Reason: Pain, Mild (Pain Scale 1-3) Docusate Sodium (Docusate Sodium 100 Mg Capsule) 100 mg PO DAILY PRN PRN Reason: Constipation Lactated Ringer's (Lr) 1,000 mls @ 80 mls/hr IVCONT .[id number] [facility] Last Admin: 04/11/22 08:35 Dose: 80 mls/hr Ketorolac Tromethamine (Ketorolac Tromethamine 15 Mg/Ml Vial) 15 mg IVPUSH Q6H PRN PRN Reason: Pain, Moderate (Pain Scale 4-6 Last Admin: 04/11/22 07:27 Dose: 15 mg Ondansetron HCl (Ondansetron Hcl 4 Mg/2 Ml Vial) 4 mg IVPUSH Q8H PRN PRN Reason: Nausea and Vomiting Last Admin: 04/11/22 07:27 Dose: 4 mg Oxycodone HCl (Oxycodone Hcl Immed Release 5 Mg Tablet) 5 mg PO Q6H PRN PRN Reason: Pain, Severe (Pain Scale 7-10) Pharmacy Consult (Consult Rx Perform Med Rec) 1 each MISCELLANE ONCE PRN PRN Reason: Consult order Sodium Chloride (0.9 % Sodium Chloride Flush 3 Ml Syringe) 3 ml IVFLUSH QSHIFT [facility] Last Admin: 04/11/22 07:27 Dose: 3 ml Tamsulosin HCl (Tamsulosin Hcl 0.4 Mg Capsule) 0.4 mg PO DAILY [facility] Last Admin: 04/11/22 07:27 Dose: 0.4 mg Physical Exam Vital Signs: Vital Signs: Last Vital Signs Temp 97.3 F 04/11/22 07:17 Pulse 85 04/11/22 07:17 Resp 18 04/11/22 07:17 BP 133/79 04/11/22 07:17 Pulse Ox 97 04/11/22 07:17 O2 Del Method 04/11/22 07:17 BMI result Body Mass Index 32.5 Const: General: cooperative, healthy appearing and no acute distress Orien tation/consciousness: patient oriented x3 HEENT: Head: Yes normal to inspection, Yes normocephalic and Yes atraumatic Eyes: Conjunctivae: conjunctivae normal Neck: Neck: Yes normal visual inspection and Yes trachea midline Chest: Chest palpation & inspection: normal inspection of the chest Resp: Effort & Inspection: normal respiratory effort Cardio: Rate: regular rate GI: Inspection: Yes normal to inspection Palpation (GI): Soft to palpation : General: Yes CVA tenderness on the left Back/Spine/Pelvis: Back: CVA tenderness Skin: General skin exam: no rashes or lesions noted Neuro: General: patient oriented x3 Extrem: General: No edema Psych: Appearance: grossly normal Results Labs Result diagrams: 04/11/22 06:40 04/10/22 13:51 Labs: Abnormal lab results 04/10/22 04/10/22 04/11/22 Range/Units 13:51 13:51 06:40 WBC 13.6 H 13.2 H (4.8-10.8) X10*3/uL RBC 4.08 L (4.20-5.50) X10*6/uL Neut % (Auto) 78.3 H (45-73) % Lymph % (Auto) 19.8 L 14.4 L (20-40) % Abs Immat Gran (auto) 0.05 H 0.04 H (0.00-0.03) X10*3/uL Absolute Neuts (auto) 9.6 H 10.3 H (2.0-8.3) x10*3/uL Urine Blood Large (3+) H (Negative) Ur Leukocyte Esterase Small (1+) H (Negative) Urine RBC >20 H (0-2) /HPF Urine WBC 11-20 H (0-5) /HPF Short CBC 04/10/22 04/11/22 Range/Units 13:51 06:40 WBC 13.6 H 13.2 H (4.8-10.8) X10*3/uL Hgb 13.2 12.3 (12.0-16.0) g/dl Hct 40.5 37.6 (37.0-47.0) % Plt Count 261 243 (160-400) X10*3/uL BMP 04/10/22 13:51 Sodium 139 Potassium 4.0 Chloride 106 Carbon Dioxide 24 BUN 13 Creatinine 0.79 Calcium 9.2 Liver Function 04/10/22 Range/Units 13:51 Total Bilirubin 0.3 (0.0-1.0) mg/dL Direct Bilirubin 0.2 (0.0-0.5) mg/dL AST 17 (5-31) U/L ALT 11 (0-31) U/L Alkaline Phosphatase 64 (39-117) U/L Albumin 4.3 (3.5-5.0) g/dL Urine 04/10/22 04/10/22 Range/Units 13:51 13:51 Urine Color Yellow Urine Appearance Clear Urine pH 5.5 (5.0-9.0) Ur Specific [place] 1.020 (1.005-1.025) Urine Protein Trace (Neg-Trace) mg/dL Urine Glucose (UA) Negative (Negative) mg/dL Urine Test NEGATIVE (NEGATIVE) Imaging Abdomen CT scan report/results: report reviewed and image reviewed Additional studies: Date of Service: 04/10/22 EXAMINATION: CT ABDOMEN AND PELVIS WITHOUT CONTRAST? CLINICAL INFORMATION: Flank pain. Rule out pyelonephritis. COMPARISON: None? TECHNIQUE: Multidetector volumetric imaging was performed from the superior aspect of the liver through the pubic symphysis. Sagittal and coronal reformatted images were obtained on the technologist's workstation.? This CT examination was performed using dose optimization techniques as appropriate, variously including the following: *Automated exposure control *Adjustment of mA and/or kV according to patient size (this includes techniques or standardized protocols for targeted exams where dose is matched to indication/reason for exam; i.e. extremities or head) *Use of iterative reconstruction technique DLP: 631 mGy-cm FINDINGS: LUNG BASES: The lung bases are clear. The heart size is normal.? LIVER, GALLBLADDER, AND BILIARY TREE: The liver is normal in size, shape, and attenuation. No focal hepatic lesion or biliary ductal dilatation is present. The gallbladder is unremarkable with no evidence of radiopaque gallstones, gallbladder wall thickening, or obvious pericholecystic inflammatory changes.? PANCREAS: Unremarkable.? SPLEEN: Unremarkable.? ADRENAL GLANDS: Unremarkable.? KIDNEYS AND URETERS: The kidneys are normal in size, shape, and attenuation. There is a 3 mm nonobstructive radiopaque calculi lower pole calyx left kidney. No additional radiopaque calculi seen. There is mild left hydroureteronephrosis secondary to an obstructive 2 mm and 4 mm left UVJ radiopaque calculi.? BLADDER: The bladder is nondistended without any bladder wall thickening.? GASTROINTESTINAL TRACT: Scattered stool and gas is seen throughout the colon without distention. Few scattered diverticuli seen in the colon. The small bowel loops are normal caliber. Appendix is normal caliber. No free air or free fluid seen.? ABDOMINAL WALL: A small lumbar canal hernia containing fat is noted.? LYMPH NODES: Normal. VASCULAR: Unremarkable. PELVIC VISCERA: The uterus is anteverted and appears unremarkable. No adnexal mass or free fluid seen.? OSSEOUS STRUCTURES: No lytic or sclerotic process seen.? IMPRESSION: Two 4 mm and 2 mm obstructive radiopaque calculi left UVJ with mild hydroureteronephrosis.? Nonobstructive 3 mm radiopaque calculi? lower pole right kidney.? Assessment and Plan (1) Obstructive uropathy: Status: Acute (2) Kidney stone: Status: Acute (3) Hydronephrosis: Status: Acute (4) Ureteral stone: Status: Acute Plan Plan for Left ureteroscopy possible laser lithotripsy, left ureteral stent. Risks discussed included but not limited to, blood in the urine, possible need to repeat procedure if stone is not completely fragmented, Irritative voiding symptoms, bladder spasms, urgency. The patient had an opportunity to ask questions regarding treatment plan. All questions were answered. Imaging studies, laboratory studies and physical exam results were discussed and reviewed in detail. No major barriers to understanding were identified. The patient expressed understanding and agreement with the above treatment plan. Procedures Date of Service Date of Service: 04/11/22
[2022-04-11] MEDS: Acetaminophen 325 MG TABLET 650 MG PO (09:57)
--- NOTE | 2022-04-11 12:40 | PC.NURSE ---
Upon assessment of patient, complaining of 10/10 abdominal pain, nausea, inability to drink PO fluids. Pt given PRN zofran and toradol given. DR. Akins made aware urology consult placed, NPO status placed, LR @ 80 mls/hr ordered and hung. pt scheduled for surgical procedure today. will continue to monitor pain and nausea.
--- NOTE | 2022-04-11 15:27 | HO.ANESPROP2 ---
[facility] Active Problems Active Problems: All Active Problems (Updated 04/11/22 @ 12:20 by Rina Montaño MD) Ureteral stone (Acute) Hydronephrosis (Acute) Obstructive uropathy (Acute) Acute flank pain (Acute) Pelvic pain (Acute) Nausea & vomiting (Acute) Kidney stone (Acute) Abdominal pain (Acute) Encounter for IUD removal (Acute) Abnormal urinalysis (Acute) Back pain (Acute) Eczema of both hands (Acute) Cigarette smoker motivated to quit (Acute) Mild intermittent asthma without complication (Acute) Anxiety disorder (Acute) Past Medical History Medical History Anxiety disorder Cigarette smoker motivated to quit Eczema of both hands Mild intermittent asthma without complication Family History Family History Father Medical history non-contributory Mother Hypothyroidism CVD (cardiovascular disease) Maternal Grandfather Diabetes mellitus Maternal Grandmother Diabetes mellitus Paternal Grandmother Diabetes mellitus Paternal Grandfather Diabetes mellitus Maternal Aunt Cerebral aneurysm Maternal Uncle Skin cancer Brother No problems noted. Brother No problems noted. Sister No problems noted. Son No problems noted. Family history of problems with anesthesia: No Surgical History Surgical History History of section History of Problems with Anesthesia: No Social History Social History Household Members: Spouse Housing: Apartment Do you presently have visiting nurse or other home services: No Alcohol intake: current Patient Tobacco Use Status: Current everyday Tobacco user Cigarettes Per Day: 1 Smoked in Last 30 Days: Yes Patient Interested in Nicotine Replacement: No Patient Given Instructions on How to Stop Smoking: No Second Hand Smoke Exposure: No Use of substances other than those prescribed or required for medical reasons: No Substance Use Frequency: Socially Currently Displaying Signs/Symptoms of Drug Intoxication Withdrawal: No Have you been hit, kicked, punched, or otherwise hurt by someone within the past year? If so, by whom?: No Do you feel safe in your current relationship?: Yes Is there a partner from a previous relationship who is making you feel unsafe now?: No Are you made to feel afraid or neglected: No Advance Directives: No Advance Directives Information Provided: No Do you have thoughts of harming others: None Do you have a plan to hurt others: No Plan Recently lost weight without trying: No Nutrition Risks: No Nutritional Risk Patient : No : No Meds Allergies Allergy/AdvReac Type Severity Reaction Status Date / Time latex Allergy Unknown unknown Verified 10/23/21 16:10 Active Medications: Current Medications Acetaminophen (Acetaminophen 325 Mg Tablet) 650 mg PO Q6H PRN PRN Reason: Pain, Mild (Pain Scale 1-3) Last Admin: 04/11/22 09:57 Dose: 650 mg Docusate Sodium (Docusate Sodium 100 Mg Capsule) 100 mg PO DAILY PRN PRN Reason: Constipation Lactated Ringer's (Lr) 1,000 mls @ 80 mls/hr IVCONT .[id number] [facility] Last Admin: 04/11/22 08:35 Dose: 80 mls/hr Ketorolac Tromethamine (Ketorolac Tromethamine 15 Mg/Ml Vial) 15 mg IVPUSH Q6H PRN PRN Reason: Pain, Moderate (Pain Scale 4-6 Last Admin: 04/11/22 07:27 Dose: 15 mg Ondansetron HCl (Ondansetron Hcl 4 Mg/2 Ml Vial) 4 mg IVPUSH Q8H PRN PRN Reason: Nausea and Vomiting Last Admin: 04/11/22 07:27 Dose: 4 mg Oxycodone HCl (Oxycodone Hcl Immed Release 5 Mg Tablet) 5 mg PO Q6H PRN PRN Reason: Pain, Severe (Pain Scale 7-10) Pharmacy Consult (Consult Rx Perform Med Rec) 1 each MISCELLANE ONCE PRN PRN Reason: Consult order Sodium Chloride (0.9 % Sodium Chloride Flush 3 Ml Syringe) 3 ml IVFLUSH QSHIFT [facility] Last Admin: 04/11/22 15:22 Dose: Not Given Tamsulosin HCl (Tamsulosin Hcl 0.4 Mg Capsule) 0.4 mg PO DAILY [facility] Last Admin: 04/11/22 07:27 Dose: 0.4 mg Exam Exam Date and Time: April 11, 2022 1527 Height,Weight and Vital Signs: Height 5 ft 4 in Weight 83.3 kg Last Vital Signs Temp 98.1 F 04/11/22 15:14 Pulse 68 04/11/22 15:14 Resp 18 04/11/22 15:14 BP 105/57 L 04/11/22 15:14 Pulse Ox 99 04/11/22 15:14 O2 Del Method 04/11/22 15:14 Pertinent Lab Results Pertinent Lab Results: Laboratory Tests 04/10/22 04/10/22 04/10/22 13:51 13:51 13:51 WBC 13.6 H RBC 4.39 Hgb 13.2 Hct 40.5 MCV 92.3 MCH 30.1 MCHC 32.6 RDW 12.5 Plt Count 261 MPV 10.6 Immature Gran % (Auto) 0.4 Neut % (Auto) 70.5 Lymph % (Auto) 19.8 L [place] % (Auto) 7.5 Eos % (Auto) 1.1 Baso % (Auto) 0.7 Lymph # (Auto) 2.7 [place] # (Auto) 1.0 Eos # (Auto) 0.2 Baso # (Auto) 0.1 Abs Immat Gran (auto) 0.05 H Absolute Neuts (auto) 9.6 H Absolute Nucleated RBC 0.000 Nucleated RBC % (auto) 0.0 Sodium 139 Potassium 4.0 Chloride 106 Carbon Dioxide 24 Anion Gap 13 BUN 13 Creatinine 0.79 Estim Creat Clear Calc 102.5 Estimated GFR > 60 Random Glucose 84 Calcium 9.2 Total Bilirubin 0.3 Direct Bilirubin 0.2 AST 17 ALT 11 Alkaline Phosphatase 64 Total Protein 7.2 Albumin 4.3 Lipase 9 Beta HCG, Quant < 2 Urine Color Yellow Urine Appearance Clear Urine pH 5.5 Ur Specific [place] 1.020 Urine Protein Trace Urine Glucose (UA) Negative Urine Ketones Negative Urine Blood Large (3+) H Urine Nitrite Negative Ur Leukocyte Esterase Small (1+) H Urine RBC >20 H Urine WBC 11-20 H Ur Squamous Epith Cells 0-2 Urine Bacteria None Seen Hyaline Casts 0-2 Urine Test COVID-19 (KRISTIN) COVID-19 Clin Com 04/10/22 04/10/22 04/11/22 13:51 21:33 06:40 WBC 13.2 H RBC 4.08 L Hgb 12.3 Hct 37.6 MCV 92.2 MCH 30.1 MCHC 32.7 RDW 12.5 Plt Count 243 MPV 11.7 Immature Gran % (Auto) 0.3 Neut % (Auto) 78.3 H Lymph % (Auto) 14.4 L [place] % (Auto) 6.5 Eos % (Auto) 0.1 Baso % (Auto) 0.4 Lymph # (Auto) 1.9 Dewey # (Auto) 0.9 Eos # (Auto) 0.0 Baso # (Auto) 0.1 Abs Immat Gran (auto) 0.04 H Absolute Neuts (auto) 10.3 H Absolute Nucleated RBC 0.000 Nucleated RBC % (auto) 0.0 Sodium Potassium Chloride Carbon Dioxide Anion Gap BUN Creatinine Estim Creat Clear Calc Estimated GFR Random Glucose Calcium Total Bilirubin Direct Bilirubin AST ALT Alkaline Phosphatase Total Protein Albumin Lipase Beta HCG, Quant Urine Color Urine Appearance Urine pH Ur Specific [place] Urine Protein Urine Glucose (UA) Urine Ketones Urine Blood Urine Nitrite Ur Leukocyte Esterase Urine RBC Urine WBC Ur Squamous Epith Cells Urine Bacteria Hyaline Casts Urine Test NEGATIVE COVID-19 (KRISTIN) Negative COVID-19 Clin Com See Note Airway Mallampati Class: II TM Dist: >3cm Neck ROM: Full Assessment and Plan Assessment Anesthesia Assessment: Anesthesia Plan Discussed and Chart Reviewed Final Anesthetic Review Family History of Problems with Anesthesia: No History of Problems with Anesthesia: No NPO: Yes ASA Class: II Final Preanesthetic Review: Meds/Allgs Chart Reviewed, Consent Obtained/Reviewed and Anes Risks/Benef Reviewed Patient Risk: Intermediate Procedure Risk: Low Anesthetic Plan Anesthetic Plan: GA Disposition: Standard PACU
--- NOTE | 2022-04-11 17:52 | W.PM.OPN ---
Operative Note Operative Note Date of Service: 04/11/22 Narrative: PreOperative Diagnosis:?? Left Ureteral stone, Left Hydronephrosis Post Operative Diagnosis:?? Left Hydronephrosis, no ureteral stone visualized Procedure: Cystoscopy, left retrograde, left ureteroscopy left ureteral stent 6 fr x 24 cm Surgeon:?Dr Rina Montaño Anesthesia:? General Indications for procedure: 36 year old female presenting with 3-4 weeks of severe pelvic pain and b/l flank pain worsening over past few days.? Reports poor po intake due to n/v and pain. Pertinent CT Findings: Two stones, 4 mm and 2 mm obstructive at the left UVJ with hydroureteronephrosis.?The patient states she thinks she may have passed the stones but remains in pain. Exam - notes persistent left lower quadrant tenderness, discussed plan to proceed with procedure for further evaluation ureteroscopy and stent placement. The patient is agreeable to plan. Procedure: After informed consent was verified the patient was brought to the operating placed on the OR table in supine position.? General Anesthesia was administered per protocol.? The patient was placed in lithotomy position, prepped and draped in the usual sterile fashion.? Safety pause time-out and side of surgery confirmed.? Antibiotics confirmed. A 22 Tongan cystoscope was inserted transurethrally, there was some resistance as the urethra was mildly stenotic. The bladder was visualized.? Both ureteric orifices were in normal position. The left ureteral orifice was edematous. An open-ended ureteral catheter was passed on the left side and a retrograde examination was performed. there was significant dilation noted in the distal to mid ureter and appeared to show a filling defect. A 2nd guidewire was then passed up into the kidney. The cystoscope was removed, leaving both guidewires in place. One guidewire was used as the safety and was attached to the draping. The semi rigid ureteroscope was passed over the second guidewires into the left ureter. No stone was visualized. One guidewire was then removed. The cystoscope was passed over the safety guidewire. A? 6 Tongan by 24 cm stent was placed into the ureter and renal pelvis under a combination of fluoroscopy and direct visualization. The string was left attached to the stent and taped the the mons pubis. The bladder was emptied.? The rigid cystoscope was removed. ? 2% lidocaine jelly 10 mL was passed transurethrally. Belladonna rectal supository was administered. The patient tolerated the procedure well and was brought to the recovery room in stable condition. Complications: None Drains: Ureteral stent as dictated above
--- NOTE | 2022-04-11 18:08 | PC.NURSE ---
PATIENT COMPLAINTS OF NAUSEA ON ARRIVAL TO MED SURG UNIT. IVF WIDE OPEN. RN RENAL REPEATING ZOFRAN DOSE
[2022-04-12] VITALS: BP 138/76; PULSE 71; RESP 18; TEMP 36.6; O2SAT 98
[2022-04-12] MEDS: Acetaminophen 325 MG TABLET 650 MG PO (00:38)
[2022-04-12] MEDS: Lactated Ringers 1,000 ML 80 ML IVCONT (00:39)
[2022-04-12 03:45] VITALS: BP 131/61; PULSE 58; RESP 18; TEMP 36; O2SAT 98
--- NOTE | 2022-04-12 07:11 | PM.DS ---
DS: Providers Provider Date of Service: 04/12/22 Date of admission: 04/11/22 11:37 Primary care physician: Olive Zimmer MD Consults: 04/11/22 07:46 Consult to Urology Routine Consulting Provider: Jagjit Rivera Reason for consultation: Kidney stones Has provider been notified: No DS: Diagnosis Discharge Diagnosis (1) Obstructive uropathy: Status: Acute (2) Kidney stone: Status: Acute (3) Hydronephrosis: Status: Acute (4) Ureteral stone: Status: Acute DS: Summary Hospital Course Hospital Course: 36-year-old female with history of ovarian cysts, mild intermittent asthma, 1cigarette per day trying to quit, and depression/anxiety presented to the ED at the recommendation of walk-in clinic and 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 Over the last 2 days she states pain has worsened and has become more constant.? She has noted nausea as well as multiple episodes of vomiting yesterday but denies any vomiting today.? She states her urine has been dark but denies any dunia blood.? Endorses burning at the end of mictrition and dyspareunia. No abdnormal vaginal discharge or bleeding. No fevers, chills. No history STI. In ED, VSS. WBC 13.6. Renal function and electrolyte normal.? UA with 3+blood, 1+leuks, nitrite neg, negative bacteria. Urine negative. Pelvic/transvaginal u/s with doppler showing thickened cervix with nabothian cysts, simple cyst right ovary, unremarkable left ovary. No torsion with normal color flow to adnexa.? CT abdomen/pelvis shows 2 4 mm and 2 mm obstructive calculi in the left UVJ with mild hydroureteronephrosis as well as nonobstructive 3 mm radiopaque calculi in the lower pole right kidney. Given ketorolac, flomax, prednisone, and 1L NS. Hospital course:Patient was observed overnight, treated with IV fluid, pain med and then underwent Cystoscopy,? left retrograde, left? ureteroscopy left ureteral stent 6 fr x 24 cm without complication and is to follow up with Dr. Danyel MD Time Spent with Patient Time attestation: Total time spent providing and/or coordinating discharge services: Discharge coordination time: Greater than 30 minutes Quality: Safe Use of Opioids Does Pt have an Active Cancer Diagnosis on the Problem List?: No Quality: Stroke Does the patient have a stroke diagnosis?: No Physical Exam Vital Signs: Vital Signs: Last Vital Signs Temp 96.8 F 04/12/22 03:45 Pulse 58 04/12/22 03:45 Resp 18 04/12/22 03:45 BP 131/61 04/12/22 03:45 Pulse Ox 98 04/12/22 03:45 O2 Del Method 04/12/22 03:45 BMI result Body Mass Index 31.5 Const: Other: General: AO X 3, no acute distress Resp: CTA bilateral CVS: S1,S2,RRR GI: +BS, NT, no distention Skin: No rash Neuro: motor grossly intact Psych: appropriate affect DS: Data Data Completed and Pending Labs on day of discharge: Laboratory Results - last 24 hr 04/11/22 06:40 WBC 13.2 H RBC 4.08 L Hgb 12.3 Hct 37.6 MCV 92.2 MCH 30.1 MCHC 32.7 RDW 12.5 Plt Count 243 MPV 11.7 Immature Gran % (Auto) 0.3 Neut % (Auto) 78.3 H Lymph % (Auto) 14.4 L Ashley % (Auto) 6.5 Eos % (Auto) 0.1 Baso % (Auto) 0.4 Lymph # (Auto) 1.9 Ashley # (Auto) 0.9 Eos # (Auto) 0.0 Baso # (Auto) 0.1 Abs Immat Gran (auto) 0.04 H Absolute Neuts (auto) 10.3 H Absolute Nucleated RBC 0.000 Nucleated RBC % (auto) 0.0 Discharge Plan Discharge Anticipated Discharge Date/Time: 04/12/22 09:14 Patient Disposition: Home Health Service Discharge Diagnosis: Kidney stone, hydronephrosis Referrals: Daisy MELGAR [Outside] - 1 Day (home with VNA, nurse will reach out to you to set up visit.) Olive Zimmer MD [Primary Care Provider] - 2 days Discharge Medications: Continued albuterol sulfate [ProAir HFA] 90 mcg/actuation HFA aerosol inhaler 1 inh inhalation QID PRN (Reason: shortness of breath or wheezing) Qty: 8.5 1RF multivitamin Tablet 1 tab PO DAILY Qty: 90 1RF Discharge Orders: Discharge Order (Routine); Ordered 04/12/22 Ordered By: Venkat Akins Diet: Advance to usual diet Activity on Discharge: As tolerated Stand Alone Forms: Patient Portal Discharge page, Work/School Release Activity Restrictions/Additional Instructions: Take your medications as prescribed. If you were prescribed antibiotics today, it is important that you take your medication to their entirety, do not skip any doses, do not finish them early. Follow-up with your primary care provider this week. Return to the emergency department with new or worsening symptoms. Such as fevers, chills, chest pain, shortness of breath, nausea, vomiting, dizziness, headache, vision changes, lethargy In case of emergency call 911 Care Plan Goals: Full recovery from kidney stone Health Concerns: Kidney stone Plan of Treatment: Follow up with Rina Montaño MD on Thursday Assessment: as above Patient Instructions: Acute Nausea and Vomiting (ED), Flank Pain (ED), Pelvic Pain (ED)
[2022-04-12 08:00] VITALS: BP 134/75; PULSE 69; RESP 18; TEMP 36.7; O2SAT 100
[2022-04-12] MEDS: Tamsulosin HCL 0.4 MG CAPSULE PO (09:05)
--- NOTE | 2022-04-12 09:50 | MHC.CM.PN ---
DP; PT MEDICALLY CLEARED FOR DC HOME WITH VNA SERVICES. REFERRAL FOR NURSING SENT TO [facility] PER PREFERENCE. RN MADE AWARE FAMILY WILL TRANSPORT HOME
--- NOTE | 2022-04-13 16:03 | HO.POSTANES ---
Post Anesthesia Evaluation Post Anesthesia Evaluation Anesthesia: General Endotracheal-GETA Mental Status: Awake Pain Control: Satisfactory Nausea/Vomiting: None Hydration: Adequate Anesthesia-Related Issues: No Anes. Related Issues
== END 2022-04-12 09:57 | disposition home or self-care (01) | DRG 465 ==
LOC: HO.ED 19:53 → HO.EDOVER 20:28 → HO.S3 21:26
PROVIDERS: Physician Assistant; Urology; Admitting Provider Physician Assistant; Emergency Provider Emergency Medicine; PCP Internal Medicine; Visit Provider Internal Medicine
PROC: 0T778DZ Dilation of Left Ureter with Intraluminal Device, Via Natural or Artificial Opening Endoscopic (ICD-10-PCS; principal; 2022-04-11 15:40)
DX: N13.30 Unspecified hydronephrosis (principal); F17.210 Nicotine dependence, cigarettes, uncomplicated; F41.9 Anxiety disorder, unspecified; J45.20 Mild intermittent asthma, uncomplicated; Z71.6 Tobacco abuse counseling; L30.9 Dermatitis, unspecified; Z20.822 Contact with and (suspected) exposure to COVID-19; Z91.040 Latex allergy status; Z79.899 Other long term (current) drug therapy
CPT/HCPCS: 36415; 74176; 76830; 76856; 80053; 81001; 81025; 82248; 83690; 84702; 85025; 87086; 87635; 93975; 99284; C1758; C1769; C2617; J0690; J1885; J2250; J2370; J2405; J3010; Q9967

== ENCOUNTER → 2022-04-14 13:06 | Outpatient (BNVA) | payer OTHER, SELFPAY | PROVIDERS: PCP Internal Medicine; Visit Provider Urology | DX: N20.1 Calculus of ureter (principal); N20.0 Calculus of kidney | CPT/HCPCS: 99212 ==

== ENCOUNTER 2022-07-01 12:37 | Outpatient (REF) | payer OTHER, SELFPAY ==
--- NOTE | ~2022-07-01 | XR_ITS ---
EXAMINATION: XR ABDOMEN KUB CLINICAL INDICATION: Calculus of kidney COMPARISON: CT 04/10/2022 TECHNIQUE: AP view of the abdomen. FINDINGS: Nonobstructive abdominal bowel gas pattern. The right lower pole 3 mm calculus seen on the CT scan is not seen on these radiographs. Left pelvic phleboliths are present; these were visible on the CT scan as well. The previously seen left ureterovesical junction calculi are not definitely seen. XR/XR KUB IMPRESSION: Previously seen urolithiasis not seen by x-ray, either no longer present or not seen for technical reasons.
== END 2022-07-01 12:38 | disposition home or self-care (01) ==
LOC: HO.XRAY 12:37
PROVIDERS: PCP Internal Medicine; Visit Provider Urology
DX: N20.0 Calculus of kidney (principal)
CPT/HCPCS: 74018

== ENCOUNTER 2022-07-09 11:27 | Outpatient (REF) | payer OTHER, SELFPAY ==
[2022-07-09 17:12] LABS: CT PCR NOT DETECTED (Not Detect.); NG PCR NOT DETECTED (Not Detect.)
[2022-07-15 16:29] LABS: HPV mRNA E6/E7 rflx Not Detected (Not Detected)
== END 2022-07-09 11:28 | disposition home or self-care (01) ==
LOC: HO.LNP 11:27
PROVIDERS: PCP Internal Medicine; Visit Provider Obstetrics & Gynecology
DX: Z01.419 Encounter for gynecological examination (general) (routine) without abnormal findings (principal); Z11.51 Encounter for screening for human papillomavirus (HPV); N93.9 Abnormal uterine and vaginal bleeding, unspecified
CPT/HCPCS: 0353U; 87624; 88142

== ENCOUNTER → 2022-07-11 13:30 | Outpatient (BNVA) | payer OTHER, SELFPAY | PROVIDERS: PCP Internal Medicine; Visit Provider Urology | DX: Z13.89 Encounter for screening for other disorder (principal) ==

== ENCOUNTER 2023-01-12 11:26 | Outpatient (REF) | payer OTHER, SELFPAY ==
--- NOTE | ~2023-01-12 | US_ITS ---
EXAMINATION: US RETROPERITONEAL LIMITED (RENAL ONLY) CLINICAL INFORMATION: Calculus of kidney. COMPARISON: X-ray abdomen KUB 07/01/2022. CT abdomen and pelvis without contrast 04/10/2022. TECHNIQUE: Real-time imaging of the kidneys. FINDINGS: RIGHT KIDNEY: 10.8 x 3.9 x 5.3 cm (SAG x AP x TRV). The kidney is normal in size, contour, and echogenicity. Renal cortical thickness is normal. Small right lower pole renal stone measuring 2 mm. No focal parenchymal lesions. No hydronephrosis. LEFT KIDNEY: 10.6 x 5.9 x 5.3 cm (SAG x AP x TRV). The kidney is normal in size, contour, and echogenicity. Renal cortical thickness is normal. No calculi or focal parenchymal lesions. No hydronephrosis. US/US renal BI IMPRESSION: Small right renal stone.
== END 2023-01-12 11:27 | disposition home or self-care (01) ==
LOC: HO.HMGCX 11:26
PROVIDERS: PCP Internal Medicine; Visit Provider Urology
DX: N20.0 Calculus of kidney (principal)
CPT/HCPCS: 76775

== ENCOUNTER 2023-01-21 14:10 | Outpatient (AMB) | payer OTHER, SELFPAY ==
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
== END 2023-01-21 14:44 | disposition home or self-care (01) ==
PROVIDERS: Visit Provider Urology
DX: N20.0 Calculus of kidney (principal)
CPT/HCPCS: 99213

== ENCOUNTER → 2023-01-21 14:10 | Outpatient (BNVA) | payer OTHER, SELFPAY | PROVIDERS: Visit Provider Urology | DX: N20.0 Calculus of kidney (principal) | CPT/HCPCS: 99212 ==

== ENCOUNTER 2023-02-20 11:20 | Outpatient (AMB) | payer OTHER, SELFPAY ==
[2023-02-20 11:44] VITALS: BP 110/70; PULSE 74; O2SAT 98; BMI 30.5
--- NOTE | 2023-02-20 11:44 | MHC.PC.OV ---
Vital Signs 02/20/23 11:44 Height 5 ft 4 in Weight 177 lb 8 oz BMI 30.5 BP 110/70 Blood Pressure Location Lt brachial Position Sitting Pulse 74 Pulse Source Pulse Oximeter Pulse Oximetry (%) 98 Intake Visit Reasons: Bumps underneath armpit Intake Note: pt is here for bumps underneath armpits both side, 1x month Animal Behaviorist Required: No Allergies latex Allergy (Unknown, Verified 02/20/23 12:02) unknown Medication List - Last Reconciled 02/20/23 by Olive Zimmer MD albuterol sulfate 90 mcg/actuation (ProAir HFA) 1 inh inhalation QID PRN cephalexin 500 mg PO Q12H 10 days multivitamin 1 tab PO DAILY pyridoxine (vitamin B6) 100 mg PO DAILY Tobacco use date assessed: 02/20/23 Dental Screening Dental Screen Date: 02/20/23 Did you have a dental visit in the last 12 months?: Yes Did you have a dental problem in the last 6 months where you did not have access to dental care?: No Was dental information given to patient?: Patient has dentist HPI Bumps underneath armpit HPI Details 37-year-old lady here today complaining of mildly pruritic , occasionally painful lesions on her bilateral axillary area, which appears several weeks ago. No history of any recent travel, patient states that lesions. after shaving axillary area. [facility] Medical History (Updated 02/20/23 @ 12:06 by Olive Zimmer MD) Anxiety disorder Cigarette smoker motivated to quit Eczema of both hands Folliculitis Mild intermittent asthma without complication Surgical History History of section Family History Father Medical history non-contributory Mother Hypothyroidism CVD (cardiovascular disease) Maternal Grandfather Diabetes mellitus Maternal Grandmother Diabetes mellitus Paternal Grandmother Diabetes mellitus Paternal Grandfather Diabetes mellitus Maternal Aunt Cerebral aneurysm Maternal Uncle Skin cancer Brother No problems noted. Brother No problems noted. Sister No problems noted. Son No problems noted. Social History Household Members: Spouse Housing: Apartment Do you presently have visiting nurse or other home services: No Alcohol intake: current Patient Tobacco Use Status: Current everyday Tobacco user Cigarettes Per Day: 1 e-Cigarette/Vaping Use: Never Used Second Hand Smoke Exposure: No Cognitive needs: No Hearing needs: No Vision needs: No Review of Systems Const Denies chills, Denies fatigue, Denies fever(s) and Denies malaise Card Denies chest pain, Denies chest pain at rest and Denies lightheadedness Resp Reports no additional complaints Musc Details: Complains of difficulty lifting ending heavy with both hands Skin/Breast Reports as per HPI Endo Denies fatigue Physical exam (Primary Care) Vital Signs: Last Vital Signs Pulse 74 02/20/23 11:44 BP 110/70 02/20/23 11:44 Pulse Ox 98 02/20/23 11:44 BMI result Body Mass Index 30.5 Tobacco/Smoking Status: Tobacco use Status Tobacco use date assessed 02/20/23 02/20/23 11:48 Patient Tobacco Use Status Current everyday Tobacco 02/20/23 11:48 e-Cigarette/Vaping Use Never Used 02/20/23 11:48 Const Other: Alert oriented x3, no acute distress noted ambulatory normal gait, seat covers trimmer present Neck Other: Supple with no lymphadenopathy palpated Chest Chest palpation & inspection: normal inspection of the chest and normal palpation of entire chest wall Breast/axilla palpation: normal palpation of the breasts Skin Other: Erythematous papular pustular lesions scattered on both axillary area, no active drainage seen Neuro General: gait normal, moves all extremities, Normal light touch and pain sensation and no focal motor deficits Assessment and Plan Assessment & Plan (1) Folliculitis: Code(s): L73.9 - Follicular disorder, unspecified Plan: Advised to do use a mild soap, or use benzoyl peroxide wash daily for at least a week. Do not she or wax affected area until infection resolves. Prescription sent for cephalexin 500 mg to take 1 every 12 hours for 10 days. Medications: New cephalexin 500 mg PO Q12H 20 caps 0RF 10 days Coding Level of Care Code Est Pt Level 3 (44554) Diagnoses Folliculitis L73.9
== END 2023-02-20 13:04 | disposition home or self-care (01) ==
PROVIDERS: PCP Internal Medicine; Visit Provider Internal Medicine
DX: L73.9 Follicular disorder, unspecified (principal)
CPT/HCPCS: 99213

== ENCOUNTER 2023-06-15 08:27 | Outpatient (AMB) | payer OTHER, SELFPAY ==
[2023-06-15 08:35] VITALS: BP 130/86; PULSE 72; O2SAT 98; BMI 30.8
--- NOTE | 2023-06-15 08:35 | A.OFFPC_ITS ---
Vital Signs 06/15/23 08:35 Height 5 ft 4 in Weight 179 lb 4 oz BMI 30.8 BP 130/86 Blood Pressure Location Lt brachial Position Sitting Pulse 72 Pulse Source Pulse Oximeter Pulse Oximetry (%) 98 Oxygen Delivery Method Room Air Intake Visit Reasons: Physical exam Intake Note: Pt here for her Annual PE Is last menstrual period known: Yes Last menstrual period: 06/09/23 Allergies latex Allergy (Unknown, Verified 06/15/23 09:37) unknown Medication List - Last Reconciled 06/15/23 by Olive Zimmer MD albuterol sulfate 90 mcg/actuation (ProAir HFA) 1 inh inhalation QID PRN multivitamin 1 tab PO DAILY omega-3 fatty acids 500 mg PO DAILY pyridoxine (vitamin B6) 100 mg PO DAILY Tobacco use date assessed: 06/15/23 Dental Screening Dental Screen Date: 06/15/23 Did you have a dental visit in the last 12 months?: No Did you have a dental problem in the last 6 months where you did not have access to dental care?: No Was dental information given to patient?: No HPI Physical exam HPI Details 37-year-old lady here today for physical exam has history of kidney stones, currently followed by Urology, has retained stones in the right, currently symptomatic. She is up-to-date with her cervical cancer screening, followed by Dr. Healy. Patient states that she has been trying to conceive for the last 2 years now. Has regular monthly periods, already has 1 child that is 5 years old . Has mild intermittent asthma, currently on albuterol inhaler which she has seldom needs to use. Has picked up smoking again, but has been trying to quit. Does not want to get a flu shot or the pneumonia vaccine. Never had COVID vaccination [facility] Medical History (Updated 06/15/23 @ 09:47 by Olive Zimmer MD) Vaccination declined Family history of thyroid disorder Folliculitis Eczema of both hands Cigarette smoker motivated to quit Mild intermittent asthma without complication Anxiety disorder Surgical History History of section Family History Father Medical history non-contributory Mother Hypothyroidism CVD (cardiovascular disease) Maternal Grandfather Diabetes mellitus Maternal Grandmother Diabetes mellitus Paternal Grandmother Diabetes mellitus Paternal Grandfather Diabetes mellitus Maternal Aunt Cerebral aneurysm Maternal Uncle Skin cancer Brother No problems noted. Brother No problems noted. Sister No problems noted. Son No problems noted. Social History Household Members: Spouse Housing: Apartment Do you presently have visiting nurse or other home services: No Alcohol intake: current Patient Tobacco Use Status: Current everyday Tobacco user Cigarettes Per Day: 1 e-Cigarette/Vaping Use: Never Used Second Hand Smoke Exposure: Yes Cognitive needs: No Hearing needs: No Vision needs: No Female Reproductive History Menstrual Date of last menstrual period: 06/09/23 control method: none Questionnaire PHQ-9 Over the last 2 weeks, how often have you been bothered by any of the following problems? 1. Little interest or pleasure in doing things: several days 2. Feeling down, depressed, or hopeless: not at all 3. Trouble falling or staying asleep, or sleeping too much: several days 4. Feeling tired or having little energy: several days 5. Poor appetite or overeating: several days 6. Feeling bad about yourself - or that you are a failure or have let yourself or your family down: not at all 7. Trouble concentrating on things, such as reading the newspaper or watching television: not at all 8. Moving or speaking so slowly that other people could have noticed. Or the opposite - being so fidgety or restless that you have been moving around a lot more than usual: not at all 9. Thoughts that you would be better off or of hurting yourself in some way: not at all Total score: 4 Depression Screening Interpretation: Negative Depression Screening Done: Yes 36501 - PHQ-9 Billing: Yes Source: Developed by Drs. Haroon Nance, Saanm Yepez, Jeffry Ferro and colleagues, with an educational brett from [employer], Mobile [employer]. Thrive Questionnaire Date Thrive assessed: 06/15/23 What is your living situation today?: I have a steady place to live Within the past 12 months, did the food you bought not last and you didn't have the money to get more?: Sometimes True Within the past 12 months, did you worry whether your food would run out before you got money to buy more?: Sometimes True Do you have trouble paying for medicines?: No Do you have trouble getting transportation to medical appointments?: No Do you have trouble paying your heating and electricity bill?: No Do you have trouble taking care of your child, family member or friend?: No Do you have trouble with day-to-day activities such as bathing, preparing meals, shopping, managing finances, etc.?: No Are you currently unemployed and looking for a job?: No Are you interested in more education?: No AUDIT C Alcohol Use Questionnaire (AUDIT-C) 1. How often do you have a drink containing alcohol?: Monthly or less 2. How many drinks containing alcohol do you have on a typical day when you are drinking?: 1 or 2 3. How often do you have six or more drinks on one occasion?: Never Total Score: 1 RAN-7 AMB Questionnaire RAN-7 Date RAN - 7 assessed: 06/15/23 Feeling nervous, anxious, or on edge: 1 = Several days Not being able to stop or control worryin = Several days Worrying too much about different things: 1 = Several days Trouble relaxin = Not at all Being so restless that it is hard to sit still: 0 = Not at all Becoming easily annoyed or irritable: 1 = Several days Feeling afraid as if something awful might happen: 0 = Not at all Total RAN-7 score (0-4 normal; 5-9 mild; 10-14 moderate; 15-21 severe): 4 Source: Developed by Drs. Haroon Nance, Sanam Yepez, Jeffry Ferro and colleagues, with an educational brett from [employer], [employer]. RAN-7 Assessment Billing RAN-7 Assessment Tool: RAN-7 Assessment 83178 ACT Questionnaire In the past 4 weeks, how much of the time did your asthma keep you from getting as much done at work, school or at home?: None of the time During the past 4 weeks, how often have you had shortness of breath?: Not at all During the past 4 weeks, how often did your asthma symptoms wake you up at night or earlier than usual in the morning?: Not at all During the past 4 weeks, how often have you had to use your rescue inhaler or nebulizer medication?: Not at all How would you rate your asthma control during the past 4 weeks?: Well controlled Score: 24 Review of Systems Const Denies chills, Denies fatigue, Denies fever(s) and Denies malaise Eyes Details: Has an appointment for an eye exam in May 2024 already scheduled Denies change in vision ENT Reports no additional complaints Card Denies chest pain, Denies chest pain at rest, Denies edema, Denies irregular heart rhythm and Denies lightheadedness Resp Reports no additional complaints GI Denies abdominal pain, Denies melena, Reports bloating, Denies hematochezia, Reports constipation, Denies heartburn and Denies nausea Details: Has history of kidney stones - right followed by Urology, currently asymptomatic Reports no additional complaints Musc Reports no additional complaints Skin/Breast Denies breast pain, Denies breast mass, Denies change in breast shape, Denies l esions and Denies rash Neuro Reports no additional complaints Psych Reports no additional complaints Endo Reports no additional complaints and Denies fatigue [place]/Lymph Reports no additional complaints Aller/Immun Reports no additional complaints Physical exam (Primary Care) Vital Signs: Last Vital Signs Pulse 72 06/15/23 08:35 BP 130/86 06/15/23 08:35 Pulse Ox 98 06/15/23 08:35 Oxygen Delivery Method Room Air 06/15/23 08:35 BMI result Body Mass Index 30.8 Tobacco/Smoking Status: Tobacco use Status Tobacco use date assessed 06/15/23 06/15/23 08:46 Patient Tobacco Use Status Current everyday Tobacco 06/15/23 08:35 e-Cigarette/Vaping Use Never Used 06/15/23 08:35 PHQ-9: PHQ-9 Score PHQ-9: Total score 4 06/15/23 09:48 Depression Screening Interpretation: Negative Thrive Assessment: Date of Thrive Assessment Date Thrive assessed 06/15/23 06/15/23 09:48 Const Other: Alert oriented x3, no acute distress noted ambulatory normal gait, license clerk present HENMT Head: Yes normocephalic Ears: external ears normal, TM's normal bilaterally and EAC's normal General nose exam: Normal external nose present Face and sinus: Yes face symmetric Mouth: Normal oral and palatal mucosa present, oropharynx normal and moist mucous membranes Eyes General: appearance normal, both eyes and all related structures Neck Other: Supple with no lymphadenopathy palpated Chest Chest palpation & inspection: normal inspection of the chest and normal palpation of entire chest wall Breast/axilla palpation: normal palpation of the breasts Resp Auscultation: clear to auscultation bilaterally Cardio Rate: regular rate Rhythm: regular rhythm Heart sounds: S1 normal heart sound present and S2 normal heart sound present GI Palpation (GI): Soft to palpation, nontender, no guarding and no masses Auscultation: normal bowel sounds General: Yes no CVA tenderness Back/Spine/Pelvis Back: no CVA tenderness and No back tenderness Skin General skin exam: no rashes or lesions noted Neuro General: gait normal, moves all extremities, Normal light touch and pain sensation and no focal motor deficits Extrem General: Yes normal to inspection, Yes full ROM, Yes no joint enlargement and Yes no pedal edema Psych Appearance: grossly normal and well kempt Mental Status: mental status grossly normal Speech and movement: Normal speech and movement present Affect: normal affect Thought process: Normal thought process present Thought content: Normal thought content present Assessment and Plan Assessment & Plan (1) Annual visit for general adult medical examination with abnormal findings: Code(s): Z00.01 - Encounter for general adult medical examination with abnormal findings Plan: Will check appropriate labs. Recommended dental visit every 6 months and regular eye exams, at least every 2 years. Take adequate calcium in diet and vitamin-D 3 at 2000 IU per cap once a day, in addition to weight-bearing exercises to help maintain good muscle tone and weight control. Instructed to do self-breast exam, and recommended to get yearly mammogram, starting at age 40. Goes to [facility] for her routine Pap and pelvic exam, currently up-to-date. Patient declines getting any vaccines peer (2) Vaccination declined: Code(s): Z28.21 - Immunization not carried out because of patient refusal (3) Mild intermittent asthma without complication: Code(s): J45.20 - Mild intermittent asthma, uncomplicated Plan: Stable controlled, rarely needing to use her albuterol inhaler advised to get vaccinated against the flu, COVID and pneumonia but patient declined (4) Kidney stones: Code(s): N20.0 - Calculus of kidney Plan: Followed by Urology , currently asymptomatic (5) Family history of thyroid disorder: Code(s): Z83.49 - Family history of other endocrine, nutritional and metabolic diseases Plan: TSH has been ordered Orders: Orders Vitamin D 25-OH Total 06/15/23 Z00.01 - Encounter for general adult medical exa mination with abnormal findings Lipid Panel 06/15/23 Z00.01 - Encounter for general adult medical examination with abnormal findings, Z13.220 - Encounter for screening for lipoid disorders, Z13.1 - Encounter for screening for diabetes mellitus, Z83.49 - Family history of other endocrine, nutritional and metabolic diseases Vitamin B12 and Folate 06/15/23 Z00.01 - Encounter for general adult medical examination with abnormal findings Glucose Fasting 06/15/23 Z00.01 - Encounter for general adult medical examination with abnormal findings Coding Level of Care Code Est Pt Prev Care 18-39y(57325) Diagnoses Annual visit for general adult medical examination with abnormal findings Z00. Vaccination declined Z28.21 Mild intermittent asthma without complication J45.20 Kidney stones N20.0 Family history of thyroid disorder Z83.49 Additional Codes RAN-7 Assessment Billing - RAN-7 Assessment Tool: RAN-7 Assessment [id number] ([id number])
== END 2023-06-15 09:36 | disposition home or self-care (01) ==
PROVIDERS: PCP Internal Medicine; Visit Provider Internal Medicine
DX: Z00.00 Encounter for general adult medical examination without abnormal findings (principal); Z28.21 Immunization not carried out because of patient refusal; J45.20 Mild intermittent asthma, uncomplicated; N20.0 Calculus of kidney; Z83.49 Family history of other endocrine, nutritional and metabolic diseases
CPT/HCPCS: 99395

== ENCOUNTER 2023-06-15 09:37 | Outpatient (REF) | payer OTHER, SELFPAY ==
[2023-06-15 11:42] LABS: Hematocrit 39.6 % (37.0-47.0); Hemoglobin 12.8 g/dl (12.0-16.0); Mean Corpuscular HGB Conc 32.3 g/dl (31.0-35.0); Mean Corpuscular Hemoglobin 30.5 pg (27.0-33.0); Mean Corpuscular Volume 94.5 fL (80.0-98.0); Mean Platelet Volume 11.9 fL (9.4-12.3); Platelet Count 273 X10*3/uL (160-400); Red Blood Count 4.19 X10*6/uL (4.20-5.50); White Blood Count 8.4 X10*3/uL (4.8-10.8)
[2023-06-15 12:32] LABS: Cholesterol 138 mg/dL (<200); Glucose Fasting 82 mg/dL (60-99); HDL Cholesterol 50 mg/dL (>40); LDL Cholesterol Calculated 72 mg/dL (<100); Triglycerides 82 mg/dL (<150)
[2023-06-15 12:38] LABS: Folate 15.1 ng/mL (> or = 4.0); Vitamin B12 550 pg/mL (200-900)
[2023-06-15 12:40] LABS: HCG Quantitative < 2 mIU/mL; TSH reflex Free T4 0.68 uIU/mL (0.32-4.0)
[2023-06-15 12:50] LABS: Vitamin D 25-OH Total 31.3 ng/mL (>30)
== END 2023-06-15 09:38 | disposition home or self-care (01) ==
LOC: HO.HMGCLDS 09:37
PROVIDERS: Obstetrics & Gynecology; PCP Internal Medicine; Visit Provider Internal Medicine
DX: Z00.01 Encounter for general adult medical examination with abnormal findings (principal); N93.9 Abnormal uterine and vaginal bleeding, unspecified; Z13.220 Encounter for screening for lipoid disorders; Z13.1 Encounter for screening for diabetes mellitus; Z83.49 Family history of other endocrine, nutritional and metabolic diseases
CPT/HCPCS: 36415; 80061; 82306; 82607; 82746; 82947; 84443; 84702; 85027

== ENCOUNTER 2023-12-14 09:29 | Outpatient (REF) | payer OTHER, SELFPAY ==
--- NOTE | ~2023-12-14 | US_ITS ---
EXAMINATION: US RETROPERITONEAL LIMITED (RENAL ONLY) CLINICAL INFORMATION: Calculus of kidney. Right kidney stone. COMPARISON: Renal ultrasound 01/12/2023. X-ray abdomen KUB 07/01/2022. CT abdomen and pelvis 04/10/2022. TECHNIQUE: Real-time imaging of the kidneys. FINDINGS: RIGHT KIDNEY: 11.1 x 4.3 x 5.7 cm (SAG x AP x TRV). The kidney is normal in size, contour, and echogenicity. Renal cortical thickness is normal. No focal parenchymal lesions. Previously noted tiny calculus in the lower pole of the right kidney is not visualized. No hydronephrosis. LEFT KIDNEY: 10.2 x 3.9 x 5.1 cm (SAG x AP x TRV). The kidney is normal in size, contour, and echogenicity. Renal cortical thickness is normal. No calculi or focal parenchymal lesions. No hydronephrosis. US/US renal BI IMPRESSION: Previously noted tiny calculus in the lower pole of the right kidney is not visualized. No left renal calculus. No hydronephrosis.
== END 2023-12-14 09:30 | disposition home or self-care (01) ==
LOC: HO.HMGCX 09:29
PROVIDERS: PCP Internal Medicine; Visit Provider Urology
DX: N20.0 Calculus of kidney (principal)
CPT/HCPCS: 76775

== ENCOUNTER 2024-04-08 13:00 | Outpatient (AMB) | payer OTHER, SELFPAY ==
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
== END 2024-04-08 13:38 | disposition home or self-care (01) ==
PROVIDERS: PCP Internal Medicine; Visit Provider Urology
DX: N20.0 Calculus of kidney (principal)
CPT/HCPCS: 99214

== ENCOUNTER → 2024-04-08 13:00 | Outpatient (BNVA) | payer OTHER, SELFPAY | PROVIDERS: PCP Internal Medicine; Visit Provider Urology | DX: N20.0 Calculus of kidney (principal) | CPT/HCPCS: 51798; 99212 ==

== ENCOUNTER 2024-06-08 13:07 | Outpatient (AMB) | payer OTHER, SELFPAY ==
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
== END 2024-06-08 14:58 | disposition home or self-care (01) ==
LOC: HO.HUSH 13:07
PROVIDERS: PCP Internal Medicine; Visit Provider Urology
DX: N20.0 Calculus of kidney (principal)
CPT/HCPCS: 99214

== ENCOUNTER → 2024-06-08 13:07 | Outpatient (BNVA) | payer OTHER, SELFPAY | PROVIDERS: PCP Internal Medicine; Visit Provider Urology ==

== ENCOUNTER 2024-11-22 08:57 | Outpatient (REF) | payer OTHER, SELFPAY ==
[2024-11-22 10:45] LABS: Hematocrit 41.2 % (37.0-47.0); Mean Corpuscular Hemoglobin 30.4 pg (27.0-33.0); Mean Corpuscular Volume 89.4 fL (80.0-98.0); Mean Platelet Volume 10.8 fL (9.4-12.3); Platelet Count 267 X10*3/uL (160-400); Red Blood Count 4.61 X10*6/uL (4.20-5.50); Red Cell Distribution Width 12.4 % (11.0-16.0); White Blood Count 11.4 X10*3/uL (4.8-10.8)
[2024-11-22 11:35] LABS: HCG Quantitative < 2 mIU/mL; TSH reflex Free T4 0.71 uIU/mL (0.32-4.0)
[2024-11-22 11:36] LABS: HBsAGNum1 0.25 S/CO (0.00-0.99); HIV AB/AG Nonreactive (Nonreactive); HIV Num 1 0.06 S/CO (0.00-0.99); Hepatitis B Surface Antigen Negative (Negative); ~HepC Num1 0.17 S/CO (0.00-0.79); ~Hepatitis C Antibody Nonreactive (Nonreactive)
[2024-11-22 11:37] LABS: Syphilis Screen Nonreactive (Nonreactive)
[2024-11-22 15:51] LABS: Bacterial Vaginosis PCR POSITIVE (Negative); Candida Group PCR NOT DETECTED (Not Detect); Candida glab krusei PCR NOT DETECTED (Not Detect); Trichomonas vaginalis PCR NOT DETECTED (Not Detect)
[2024-11-22 16:22] LABS: CT PCR NOT DETECTED (Not Detect.); NG PCR NOT DETECTED (Not Detect.)
[2024-11-25 15:54] LABS: Testosterone, Free 4.7 pg/mL (0.1-6.4); Testosterone, Total 58 ng/dL (2-45)
== END 2024-11-22 08:58 | disposition home or self-care (01) ==
LOC: HO.LAB 08:57
PROVIDERS: PCP Internal Medicine; Visit Provider Obstetrics & Gynecology
DX: N93.9 Abnormal uterine and vaginal bleeding, unspecified (principal); L68.0 Hirsutism; N76.0 Acute vaginitis; B96.89 Other specified bacterial agents as the cause of diseases classified elsewhere
CPT/HCPCS: 81025; 81515; 83498; 84402; 84403; 84443; 84702; 85027; 86780; 86803; 87340; 87389; 87491; 87591; 99212

== ENCOUNTER 2024-11-22 08:57 | Outpatient (AMB) | payer OTHER, SELFPAY ==
--- NOTE | 2024-11-22 09:08 | A.OFFVIS_ITS ---
Vital Signs 11/22/24 09:09 Height 5 ft 4 in Weight 174 lb BMI 29.9 BP 112/78 Intake Visit Reasons: menstrual odor Chip Washer Required: No Information Interpreted: non-clinical & clinical Auto Clutch Rebuilder: Auto Clutch Rebuilder Present (Denice GAONA) Accompanied by: Self / Same As Patient Allergies latex Allergy (Unknown, Verified 06/08/24 13:10) unknown HPI Comments Details: Presenting complaining of prolonged menstrual cycles associated with hair growth, foul vaginal odor no vaginal discharge or itching [facility] Medical History Vaginal discharge Vaccination declined Family history of thyroid disorder Folliculitis Eczema of both hands Cigarette smoker motivated to quit Mild intermittent asthma without complication Anxiety disorder Surgical History History of section Family History Father Medical history non-contributory Mother Hypothyroidism CVD (cardiovascular disease) Maternal Grandfather Diabetes mellitus Maternal Grandmother Diabetes mellitus Paternal Grandmother Diabetes mellitus Paternal Grandfather Diabetes mellitus Maternal Aunt Cerebral aneurysm Maternal Uncle Skin cancer Brother No problems noted. Brother No problems noted. Sister No problems noted. Son No problems noted. Social History Household Members: Spouse Housing: Apartment Do you presently have visiting nurse or other home services: No Alcohol intake: current Patient Tobacco Use Status: Current everyday Tobacco user Cigarettes Per Day: 1 e-Cigarette/Vaping Use: Never Used Second Hand Smoke Exposure: Yes Cognitive needs: No Hearing needs: No Vision needs: No Female Reproductive History Menstrual Age of Menarche: 11 Duration of menses: 6-7 days Date of last menstrual period: 11/13/24 Review of Systems Const All systems reviewed & are unremarkable except as noted in HPI and below Physical Exam Vital Signs: Last Vital Signs BP 112/78 11/22/24 09:09 BMI result Body Mass Index 29.9 General: Yes no CVA tenderness External Female Exam: normal external appearance and normal appearance of the urethra Speculum Exam - Vagina: normal appearance of the vagina, normal palpation, no lesions and no masses Speculum Exam - Cervix: normal appearance of the cervix, normal palpation, no lesions, no masses and nontender Bimanual exam- vagina & uterus: normal bimanual exam, normal palpation, uterine size normal, normal palpation, uterine shape normal, No Cervical tenderness present and non-tender Bimanual Exam- Adnexa, other: normal adnexae Back/Spine/Pelvis Back: no CVA tenderness Results AMB Test Urine AMB Test Urine Negative Last Edit by Denice Munguia CMA on 09:21 Results Reviewed Results Reviewed: Laboratory Last Values Tst Clinic Negative 11/22/24 09:21 Assessment & Plan Assessment & Plan (1) Abnormal uterine bleeding (AUB): Comment: With hirsutism Code(s): N93.9 - Abnormal uterine and vaginal bleeding, unspecified Category: Medical Plan: GC and chlamydia taken CBC, TSH, HCG, 17 hydroxyprogesterone and testosterone total and free and pelvic ultrasound ordered. Discussed with the patient the different causes of abnormal bleeding including thyroid disorders, uterine and ovarian pathology, endometrial hyperplasia, carcinoma and other potential causes. Discussed with the patient the work up including CBC (to r/o anemia), TSH, 17 hydroxyprogesterone with testosterone total and free and pelvic Ultrasound, endometrial biopsy to r/o endometrial pathology. All questions answered and the patient verbalized understanding. Instructed the patient to schedule an appointment for an endometrial biopsy in 2 weeks. (2) BV (bacterial vaginosis): Code(s): N76.0 - Acute vaginitis; B96.89 - Other specified bacterial agents as the cause of diseases classified elsewhere Category: Medical Plan: GC and chlamydia cultures with BV panel taken. Per CDC recommendation, will screen for STI, HepBs Ag, HIV, RPR, Hep C Ab ordered. Will treat with Flagyl 500 mg p.o. b.i.d. x 7 days, Instructions given to the patient to refrain from sexual activity or to use condoms consistently and correctly during the BV treatment regimen, not to douch, it might increase the risk for relapse, and to call if symptoms persist or recur. Orders: Orders AMB HCG Urine Test Today Z32.02 - Encounter for test, result negative HCG Quantitative Today N93.9 - Abnormal uterine and vaginal bleeding, unspecified TSH reflex Free T4 Today N93.9 - Abnormal uterine and vaginal bleeding, unspecified Complete Blood Count no Diff Today N93.9 - Abnormal uterine and vaginal bleeding, unspecified 17 Hydroxyprogesterone Today L68.0 - Hirsutism Testosterone, Free/Total Today L68.0 - Hirsutism Hepatitis C Antibody Today B96.89 - Other specified bacterial agents as the cause of diseases classified elsewhere, N76.0 - Acute vaginitis Syphilis Screen Today B96.89 - Other specified bacterial agents as the cause of diseases classified elsewhere, N76.0 - Acute vaginitis HIV Ab/Ag Today B96.89 - Other specified bacterial agents as the cause of diseases classified elsewhere, N76.0 - Acute vaginitis US pelvic and transvaginal Today N93.9 - Abnormal uterine and vaginal bleeding, unspecified Hepatitis B Surface Antigen Today B96.89 - Other specified bacterial agents as the cause of diseases classified elsewhere, N76.0 - Acute vaginitis Medications: New metronidazole 500 mg PO BID 7 days 14 tabs 0RF Coding Level of Care Code Est Pt Level 3 (41043) Diagnoses Abnormal uterine bleeding (AUB) N93.9 BV (bacterial vaginosis) N76.0; B96.89
[2024-11-22 09:09] VITALS: BP 112/78; BMI 29.9
--- OUTSIDE RECORDS SUMMARY | 2024-11-22 09:25 | XMS_ITS | Clinical Summary ---
Author Organization [facility] [address] [place] [address] Care Team Providers Care Erp Project Manager Name Role Phone Unavailable Primary Care Provider Unavailabl e Social History Tobacco Use Types Packs/Day Years Used Date Smoking Tobacco: Never Assessed Comments Unknown Sex and Gender Information Value Date Recorded Sex Assigned at Not on file Legal Sex Female 7:19 PM EST Gender Identity Not on file Sexual Orientation Not on file Plan of Treatment Health Maintenance Due Date Last Done Comments DTaP,Tdap,and Td Vaccines (1 - Tdap) 11/07/2006 Hepatitis B Vaccines (1 of 3 - 19+ 3-dose series) 11/07/2006 Cervical Cancer Screening: P ap Smear 11/07/2008 COVID-19 Vaccine ( - 2023-2 5 season) 2024 Influenza Vaccine (Season Ended) 2025 HIB Vaccines Aged Out No longer eligi ble based on patient's age to complete this topic HPV Vaccines Aged Out No longer eligi ble based on patient's age to complete this topic Hepatitis A Vaccines Aged Out No long er eligible based on patient's age to complete this topic IPV Vaccines Aged Out No longer eligi ble based on patient's age to complete this topic MMR Vaccines Aged Out No longer eligi ble based on patient's age to complete this topic Meningococcal ACWY Vaccine Aged Out N o longer eligible based on patient's age to complete this topic Meningococcal B Vaccine Aged Out No l onger eligible based on patient's age to complete this topic Pneumococcal Vaccine: Pediat rics (0 to 5 Years) and At-Risk Patients (6 to 64 Years) Aged Out No longer eligible b ased on patient's age to complete this topic RSV Immunization Patients Un lazarus 20 months Aged Out No longer eligible b ased on patient's age to complete this topic Varicella Vaccines Aged Out No longer eligible based on patient's age to complete this topic
== END 2024-11-22 09:51 | disposition home or self-care (01) ==
PROVIDERS: PCP Internal Medicine; Visit Provider Obstetrics & Gynecology
DX: N93.9 Abnormal uterine and vaginal bleeding, unspecified (principal); N76.0 Acute vaginitis; B96.89 Other specified bacterial agents as the cause of diseases classified elsewhere; Z32.02 Encounter for pregnancy test, result negative
CPT/HCPCS: 99213

== ENCOUNTER 2024-11-28 09:05 | Outpatient (REF) | payer OTHER, SELFPAY | END 2024-11-28 09:06 | disposition home or self-care (01) | LOC: HO.LNP 09:05 | PROVIDERS: PCP Internal Medicine; Visit Provider Obstetrics & Gynecology | DX: N93.9 Abnormal uterine and vaginal bleeding, unspecified (principal) | CPT/HCPCS: 58100; 88305 ==

== ENCOUNTER 2025-02-08 13:56 | Outpatient (REF) | payer OTHER, SELFPAY ==
--- NOTE | ~2025-02-08 | US_ITS ---
EXAMINATION: US PELVIS TRANSABDOMINAL AND TRANSVAGINAL HISTORY: N93.9 - Abnormal uterine and vaginal bleeding, unspecified COMPARISON: Comparison is made with the prior examination dated 04/10/2022. TECHNIQUE: Transabdominal and endovaginal real-time 2D martinez-scale ultrasound was performed. FINDINGS: Uterus: The uterus is normal in size, measuring 8.8 x 3.6 x 2.8 cm. Myometrium has a normal echotexture. No fibroids are identified. Endometrium: The endometrial stripe is poorly visualized. Right ovary: The right ovary is not identified. Left ovary: The left ovary is not identified. Pelvic fluid: none. US/US pelvic and transvaginal IMPRESSION: The endometrial stripe is poorly visualized. The ovaries are not identified. Electronically signed by: Haroon Olmedo MD 02/08/2025 02:52 PM EDT
--- OUTSIDE RECORDS SUMMARY | 2025-02-08 14:19 | XMS_ITS | Clinical Summary ---
Author Organization [facility] Address [address] [place] [address] Care Team Providers Care Food Counselor Name Role Phone Unavailable Primary Care Provider [...] Vaccine ( - 2023-2 5 season) 2024 Depression Screening 06/29/2024 Influenza Vaccine (#1) 2025 HIB Vaccines Aged Out No longer [...] 5 Years) and At-Risk Patients (6 to 49 Years) Aged Out No longer eligible b ased on patient's age to complete this topic RSV Immunization Patients Un lazarus 20 months Aged Out No longer eligible b ased on patient's age to complete this topic Varicella Vaccines Aged Out No longer eligible based on patient's age to complete this topic
== END 2025-02-08 13:57 | disposition home or self-care (01) ==
LOC: HO.US 13:56
PROVIDERS: PCP Internal Medicine; Visit Provider Obstetrics & Gynecology
DX: N93.9 Abnormal uterine and vaginal bleeding, unspecified (principal)
CPT/HCPCS: 76830; 76856

== ENCOUNTER → 2025-02-08 13:57 | Outpatient (BNV) | payer OTHER, SELFPAY | PROVIDERS: PCP Internal Medicine; Visit Provider Radiology Diagnostic Radiology | DX: N93.9 Abnormal uterine and vaginal bleeding, unspecified (principal) | CPT/HCPCS: 76830; 76856 ==

== ENCOUNTER 2025-02-22 14:09 | Outpatient (AMB) | payer OTHER, SELFPAY ==
--- NOTE | 2025-02-22 14:11 | A.OFFVIS_ITS ---
Intake Visit Reasons: ultrasound follow up/EMB results Allergies latex Allergy (Unknown, Verified 11/28/24 09:13) unknown HPI Comments Details: The patient is presenting for follow-up to discuss the results of her abnormal uterine bleeding workup and options of treatment. The following workup was done.: H&H= TSH, hCG, GC and chlamydia were negative. 14/41.2 Testosterone total 58, free within normal and 17 hydroxyprogesterone within normal Endometrial biopsy pathology showed the following: Endometrium, biopsy: Few fragments of benign proliferative endometrium, and abundant benign endocervical glandular and squamous epithelium; no atypia or carcinoma Co testing was done in 07/21 was negative. Pelvic ultrasound showed the following: Uterus: The uterus is normal in size, measuring 8.8 x 3.6 x 2.8 cm. Myometrium has a normal echotexture. No fibroids are identified. Endometrium: The endometrial stripe is poorly visualized. Right ovary: The right ovary is not identified. Left ovary: The left ovary is not identified. Pelvic fluid: none. [facility] Medical History Vaginal discharge Vaccination declined Family history of thyroid disorder Folliculitis Eczema of both hands Cigarette smoker motivated to quit Mild intermittent asthma without complication Anxiety disorder Surgical History History of section Family History Father Medical history non-contributory Mother Hypothyroidism CVD (cardiovascular disease) Maternal Grandfather Diabetes mellitus Maternal Grandmother Diabetes mellitus Paternal Grandmother Diabetes mellitus Paternal Grandfather Diabetes mellitus Maternal Aunt Cerebral aneurysm Maternal Uncle Skin cancer Brother No problems noted. Brother No problems noted. Sister No problems noted. Son No problems noted. Social History Household Members: Spouse Housing: Apartment Do you presently have visiting nurse or other home services: No Alcohol intake: current Patient Tobacco Use Status: Current everyday Tobacco user Cigarettes Per Day: 1 e-Cigarette/Vaping Use: Never Used Second Hand Smoke Exposure: Yes Cognitive needs: No Hearing needs: No Vision needs: No Female Reproductive History Menstrual Age of Menarche: 11 Review of Systems Const All systems reviewed & are unremarkable except as noted in HPI and below Reports as per HPI and Reports no additional complaints GI Reports no additional complaints Reports no additional complaints Assessment & Plan Assessment & Plan (1) Abnormal uterine bleeding (AUB): Comment: With hirsutism Code(s): N93.9 - Abnormal uterine and vaginal bleeding, unspecified Category: Medical Plan: Discussed with the patient the results of the work up done and options of treatment including Lysteda, BCP's, Mirena IUD. All pros, cons, risks and benefits if each option was discussed with the patient and the patient decided to think about it and get back to us. All questions answered the patient verbalized understanding. Coding Level of Care Code Est Pt Level 3 (58435) Diagnoses Abnormal uterine bleeding (AUB) N93.9
--- OUTSIDE RECORDS SUMMARY | 2025-02-22 15:11 | XMS_ITS | Clinical Summary ---
Author Organization [facility] ity Address [address] [place] [address] Care Team Providers Care Classified Advertising Supervisor Name Role Phone Unavailable Primary Care Provider [...]
== END 2025-02-22 14:50 | disposition home or self-care (01) ==
LOC: HO.HWS 14:10
PROVIDERS: PCP Internal Medicine; Visit Provider Obstetrics & Gynecology
DX: N93.9 Abnormal uterine and vaginal bleeding, unspecified (principal)
CPT/HCPCS: 99213

== ENCOUNTER → 2025-02-22 14:09 | Outpatient (BNVA) | payer OTHER, SELFPAY | PROVIDERS: PCP Internal Medicine; Visit Provider Obstetrics & Gynecology | DX: N93.9 Abnormal uterine and vaginal bleeding, unspecified (principal) | CPT/HCPCS: 99212 ==

== ENCOUNTER 2025-04-13 09:35 | Outpatient (REF) | payer OTHER, SELFPAY ==
--- NOTE | ~2025-04-13 | US_ITS ---
CLINICAL HISTORY: N20.0 - Calculus of kidney US Renal Comparison: US/SR - US KIDNEY BILATERAL - 12/14/2023 09:35 AM EDT Findings: Right kidney normal size and echotexture, 10.0 cm length. Left kidney normal size and echotexture, 8.6 cm length. No hydronephrosis of either kidney. Normal color Doppler IMPRESSION: 1. Normal kidneys. This document has been electronically signed by: Davon Miranda MD on 04/14/2025 09:55:33
--- OUTSIDE RECORDS SUMMARY | 2025-04-13 11:00 | XMS_ITS | Clinical Summary ---
Author Organization [facility] ity Address [address] [place] [address] Care Team Providers Care Authorizer Name Role Phone Unavailable Primary Care Provider [...] Cervical Cancer Screening: P ap Smear 11/07/2008 HPV Vaccines (1 - 3-dose SCD M series) 11/07/2014 Depression Screening 06/29/2024 COVID-19 Vaccine ( - 2023-2 5 season) 2025 Influenza Vaccine (#1) 2025 RSV Immunization Adult Patie nts (1 - 1-dose 75+ series) 11/07/2062 HIB Vaccines Aged Out No longer eligi [...]
== END 2025-04-13 09:36 | disposition home or self-care (01) ==
LOC: HO.HMGCX 09:35
PROVIDERS: PCP Internal Medicine; Visit Provider Urology
DX: N20.0 Calculus of kidney (principal); R10.9 Unspecified abdominal pain; N13.30 Unspecified hydronephrosis
CPT/HCPCS: 76775

== ENCOUNTER → 2025-04-13 09:39 | Outpatient (BNV) | payer OTHER, SELFPAY | PROVIDERS: PCP Internal Medicine; Visit Provider Specialist | DX: N20.0 Calculus of kidney (principal) | CPT/HCPCS: 76775 ==

== ENCOUNTER 2025-04-27 07:23 | Outpatient (AMB) | payer OTHER, SELFPAY ==
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
--- OUTSIDE RECORDS SUMMARY | 2025-04-27 07:25 | XMS_ITS | Clinical Summary ---
Author Organization [facility] ity Address [address] [place] [address] Care Team Providers Care Automotive Service Manager Name Role Phone Unavailable Primary Care [...]
== END 2025-04-27 08:20 | disposition home or self-care (01) ==
LOC: HO.HUSH 07:23
PROVIDERS: PCP Internal Medicine; Visit Provider Urology
DX: N20.0 Calculus of kidney (principal)
CPT/HCPCS: 99213

== ENCOUNTER 2025-05-09 08:11 | Outpatient (AMB) | payer OTHER, SELFPAY ==
--- OUTSIDE RECORDS SUMMARY | 2025-05-09 08:14 | XMS_ITS | Clinical Summary ---
Author Organization [facility] ity Address [address] [place] [address] Care Team Providers Care Electric Serviceman Name Role Phone Unavailable Primary Care Provider [...] Depression Screening 06/29/2024 COVID-19 Vaccine ( - 2024-2 6 season) 2025 Influenza Vaccine (#1) 2025 RSV [...]
--- NOTE | 2025-05-09 08:29 | A.OFFPC_ITS ---
Vital Signs 05/09/25 08:30 Height 5 ft 4 in Weight 178 lb BMI 30.6 BP 94/60 Blood Pressure Location Lt brachial Position Sitting Respiration 16 Pulse 82 Pulse Source Pulse Oximeter Temp 98.2 F Temp Source Oral Pulse Oximetry (%) 98 Oxygen Delivery Method Room Air Intake Visit Reasons: follow up Intake Note: Pt is here today, Dr. 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 Allergies latex Allergy (Unknown, Verified 05/14/25 21:10) unknown Medication List - Last Reconciled 05/14/25 by Olive Zimmer MD metronidazole 500 mg PO BID 7 days multivitamin 1 tab PO DAILY omega-3 fatty acids 500 mg PO DAILY pyridoxine (vitamin B6) 100 mg PO DAILY Ventolin HFA 90 mcg/actuation (albuterol sulfate) 1 inh inhalation QID PRN NS Tobacco use date assessed: 05/09/25 Dental Screening Dental Screen Date: 05/09/25 Did you have a dental visit in the last 12 months?: No Did you have a dental problem in the last 6 months where you did not have access to dental care?: No Was dental information given to patient?: Patient has dentist HPI follow up HPI Details The patient is a 39-year-old female presenting for follow-up on Polycystic Ovary Syndrome (PCOS) and secondary infertility. She has been trying to conceive for 3-4 years since her Mirena IUD was removed, without success. The patient has one 6-year-old child and reports it took over a year to conceive her. The patient was previously diagnosed with PCOS based on criteria including irregular periods and elevated testosterone. Her menstrual cycles occur monthly but are heavy for 2-3 days, then stop, and are followed by spotting. She also reports abnormal hair growth, pain during intercourse, and significant vaginal dryness requiring lubricants. Her gynecologic history is notable for ovarian cysts since age 11 and being on control for over ten years starting at age 17 or 18. An ultrasound performed by her previous provider did not show any cysts, but the ovaries were not well visualized. Her prior was complicated by preeclampsia, which led to an emergency . Past medical history includes kidney stones that required a stent, though a recent ultrasound was clear. She also had a prior episode of bacterial vaginosis associated with an elevated white blood cell count. Family history is positive for thyroid disease in her mother and brother, and diabetes in her grandparents and maternal uncles. The patient is a smoker. She works a physically demanding job but suffers from chronic sleep deprivation, averaging only 3-4 hours of sleep per night, which she identifies as a source of stress. [facility] Medical History Light cigarette smoker Vaginal discharge Vaccination declined Family history of thyroid disorder Folliculitis Eczema of both hands Cigarette smoker motivated to quit Mild intermittent asthma without complication Anxiety disorder Surgical History History of section Family History Father Medical history non-contributory Mother Hypothyroidism CVD (cardiovascular disease) Maternal Grandfather Diabetes mellitus Maternal Grandmother Diabetes mellitus Paternal Grandmother Diabetes mellitus Paternal Grandfather Diabetes mellitus Maternal Aunt Cerebral aneurysm Maternal Uncle Skin cancer Brother No problems noted. Brother No problems noted. Sister No problems noted. Son No problems noted. Social History Household Members: Spouse Housing: Apartment Do you presently have visiting nurse or other home services: No Alcohol intake: current Patient Tobacco Use Status: Current everyday Tobacco user Cigarettes Per Day: 1 e-Cigarette/Vaping Use: Never Used Second Hand Smoke Exposure: Yes service: No Current occupational status: employed Cognitive needs: No Hearing needs: No Vision needs: No Female Reproductive History Menstrual Age of Menarche: 11 Questionnaire PHQ-9 Over the last 2 weeks, how often have you been bothered by any of the following problems? 1. Little interest or pleasure in doing things: not at all 2. Feeling down, depressed, or hopeless: not at all 3. Trouble falling or staying asleep, or sleeping too much: not at all 4. Feeling tired or having little energy: several days 5. Poor appetite or overeating: several days 6. Feeling bad about yourself - or that you are a failure or have let yourself or your family down: not at all 7. Trouble concentrating on things, such as reading the newspaper or watching television: not at all 8. Moving or speaking so slowly that other people could have noticed. Or the opposite - being so fidgety or restless that you have been moving around a lot more than usual: not at all 9. Thoughts that you would be better off or of hurting yourself in some way: not at all Total score: 2 Depression Screening Interpretation: Negative Depression Screening Done: Yes 16684 - PHQ-9 Billing: Yes Source: Developed by Drs. Haroon Nance, Sanam Yepez, Jeffry Ferro and colleagues, with an educational brett from [employer]. Thrive Questionnaire Date Thrive assessed: 05/09/25 I am a: Patient What is your living situation today?: I have a steady place to live Within the past 12 months, did the food you bought not last and you didn't have the money to get more?: Never true Within the past 12 months, did you worry whether your food would run out before you got money to buy more?: Never true Do you have trouble paying for medicines?: No Do you have trouble getting transportation to medical appointments?: No Do you have trouble paying your heating and electricity bill?: No Do you have trouble taking care of your child, family member or friend?: No Do you have trouble with day-to-day activities such as bathing, preparing meals, shopping, managing finances, etc.?: No Are you currently unemployed and looking for a job?: No Are you interested in more education?: No Please select the resources that you would like help with: None Currently or been in a relationship where the following occur: No concerns reported THRIVE Score: 0 AUDIT C Alcohol Use Questionnaire (AUDIT-C) 1. How often do you have a drink containing alcohol?: Monthly or less 2. How many drinks containing alcohol do you have on a typical day when you are drinking?: 1 or 2 3. How often do you have six or more drinks on one occasion?: Never Total Score: 1 RAN-7 AMB Questionnaire RAN-7 Date RAN - 7 assessed: 05/09/25 Feeling nervous, anxious, or on edge: 1 = Several days Not being able to stop or control worryin = Several days Worrying too much about different things: 1 = Several days Trouble relaxin = Several days Being so restless that it is hard to sit still: 0 = Not at all Becoming easily annoyed or irritable: 0 = Not at all Feeling afraid as if something awful might happen: 0 = Not at all Total RAN-7 score (0-4 normal; 5-9 mild; 10-14 moderate; 15-21 severe): 4 Source: Developed by Drs. Haroon Nance, Sanam Yepez, Jeffry Ferro and colleagues, with an educational brett from [employer]. RAN-7 Assessment Billing RAN-7 Assessment Tool: RAN-7 Assessment 09695 Review of Systems Const All systems reviewed & are unremarkable except as noted in HPI and below Physical exam (Primary Care) Vital Signs: Last Vital Signs Temp 98.2 F 05/09/25 08:30 Pulse 82 05/09/25 08:30 Resp 16 05/09/25 08:30 BP 94/60 05/09/25 08:30 Pulse Ox 98 05/09/25 08:30 Oxygen Delivery Method Room Air 05/09/25 08:30 BMI result Body Mass Index 30.6 Tobacco/Smoking Status: Tobacco use Status Tobacco use date assessed 05/09/25 05/09/25 08:32 Patient Tobacco Use Status Current everyday Tobacco 05/09/25 08:30 e-Cigarette/Vaping Use Never Used 05/09/25 08:30 PHQ-9: PHQ-9 Score PHQ-9: Total score 2 05/09/25 09:19 Depression Screening Interpretation: Negative Thrive Assessment: Date of Thrive Assessment Date Thrive assessed 06/18/24 05/09/25 08:30 Currently or been in a relationship where the following occur: No concerns reported Const Other: Alert oriented x3, no acute distress noted ambulatory normal gait HENMT Ears: external ears normal, TM's normal bilaterally and EAC's normal General nose exam: Normal external nose present Face and sinus: Yes face symmetric Mouth: Normal oral and palatal mucosa present and moist mucous membranes Eyes General: appearance normal, both eyes and all related structures Neck Other: Supple with no lymphadenopathy palpated Resp Auscultation: clear to auscultation bilaterally Cardio Rate: regular rate Rhythm: regular rhythm Heart sounds: S1 normal heart sound present and S2 normal heart sound present GI Palpation (GI): Soft to palpation, nontender and no guarding Auscultation: normal bowel sounds General: Yes no CVA tenderness Back/Spine/Pelvis Back: no CVA tenderness and No back tenderness Skin General skin exam: no rashes or lesions noted Neuro General: gait normal, moves all extremities, Normal light touch and pain sensation and no focal motor deficits Extrem General: Yes normal to inspection, Yes full ROM, Yes no joint enlargement and Yes no pedal edema Psych Appearance: grossly normal and well kempt Mental Status: mental status grossly normal Speech and movement: Normal speech and movement present Affect: normal affect Coding Level of Care Code Est Pt Level 4 (95620) Complex EM visit Add On G2211 Diagnoses Family history of thyroid disorder Z83.49 Light cigarette smoker F17.210 Leukocytosis D72.829 Secondary female infertility N97.9 Disturbed sleep rhythm G47.20 Additional Codes PHQ-9 - 87388 - PHQ-9 Billing: Yes ([id number]) RAN-7 Assessment Billing - RAN-7 Assessment Tool: RAN-7 Assessment 20858 ([id number]) Assessment & Plan Assessment & Plan (1) Family history of thyroid disorder: Code(s): Z83.49 - Family history of other endocrine, nutritional and metabolic diseases Category: Medical (2) Light cigarette smoker: Code(s): F17.210 - Nicotine dependence, cigarettes, uncomplicated Category: Social Hx (3) Leukocytosis: Code(s): D72.829 - Elevated white blood cell count, unspecified (4) Secondary female infertility: Code(s): N97.9 - Female infertility, unspecified (5) Disturbed sleep rhythm: Code(s): G47.20 - Circadian rhythm sleep disorder, unspecified type Plan 1. Secondary Infertility and Polycystic Ovary Syndrome (PCOS) The patient is a 39-year-old female with a diagnosis of PCOS, characterized by irregular menses and hyperandrogenism (elevated testosterone, hirsutism), who has been unable to conceive for 3-4 years. Her previous provider noted she was borderline for diabetes, though her labs two years ago were normal. Hormonal therapy is not an option as she desires . Ordered new lab work, including a fasting lipid panel, glucose, a comprehensive thyroid panel, vitamin D, folic acid, and a CBC to check for anemia.Patient will need to return for a 12-hour fasting blood draw. Recommend a referral to a reproductive specialist for fertility evaluation; the patient will check her insurance re : coverage for this. 2. Tobacco Use Patient is a smoker. Advised patient to work on quitting smoking, which was also recommended by her previous provider. 3. Sleep Deprivation Patient reports chronic sleep deprivation (3-4 hours per night) due to her work schedule and family demands, which is a significant physiological stressor. Educated patient that chronic stress and lack of sleep can negatively impact overall health and fertility. Patient was advised to get her annual flu shot. Patient was informed and verbally consented to the use of an ambient scribe for clinic note documentation during this visit. Orders: Orders Glucose Fasting 05/09/25 Z13.1 - Encounter for screening for diabetes mellitus, Z13.220 - Encounter for screening for lipoid disorders, Z83.49 - Family history of other endocrine, nutritional and metabolic diseases Vitamin D 25-OH Total 05/09/25 Z13.1 - Encounter for screening for diabetes mellitus, Z13.220 - Encounter for screening for lipoid disorders, Z83.49 - Family history of other endocrine, nutritional and metabolic diseases TSH reflex Free T4 05/09/25 Z13.1 - Encounter for screening for diabetes mellitus, Z13.220 - Encounter for screening for lipoid disorders, Z83.49 - Family history of other endocrine, nutritional and metabolic diseases Lipid Panel 05/09/25 Z13.1 - Encounter for screening for diabetes mellitus, Z13.220 - Encounter for screening for lipoid disorders, Z83.49 - Family history of other endocrine, nutritional and metabolic diseases Hemoglobin A1c 05/09/25 Z13.1 - Encounter for screening for diabetes mellitus, Z13.220 - Encounter for screening for lipoid disorders, Z83.49 - Family history of other endocrine, nutritional and metabolic diseases Complete Blood Count Auto Diff 05/09/25 D72.829 - Elevated white blood cell count, unspecified
[2025-05-09 08:30] VITALS: BP 94/60; PULSE 82; RESP 16; TEMP 36.8; O2SAT 98; BMI 30.6
== END 2025-05-09 10:13 | disposition home or self-care (01) ==
LOC: HO.HMCC 08:11
PROVIDERS: PCP Internal Medicine; Visit Provider Internal Medicine
DX: Z83.49 Family history of other endocrine, nutritional and metabolic diseases (principal); F17.210 Nicotine dependence, cigarettes, uncomplicated; D72.829 Elevated white blood cell count, unspecified; N97.9 Female infertility, unspecified; G47.20 Circadian rhythm sleep disorder, unspecified type

== ENCOUNTER → 2025-05-09 08:11 | Outpatient (BNVA) | payer OTHER, SELFPAY | PROVIDERS: PCP Internal Medicine; Visit Provider Internal Medicine | DX: E28.2 Polycystic ovarian syndrome (principal); D72.829 Elevated white blood cell count, unspecified; N97.9 Female infertility, unspecified; G47.20 Circadian rhythm sleep disorder, unspecified type; F17.210 Nicotine dependence, cigarettes, uncomplicated; Z83.49 Family history of other endocrine, nutritional and metabolic diseases | CPT/HCPCS: 96127; 99212 ==

== ENCOUNTER 2025-06-13 08:35 | Outpatient (REF) | payer OTHER, SELFPAY ==
[2025-06-13 14:17] LABS: MANUAL DIFF FLAG NO
[2025-06-13 14:32] LABS: Hematocrit 42.4 % (37.0-47.0); Hemoglobin 13.4 g/dl (12.0-16.0); Imm Gran Abs Auto 0.02 X10*3/uL (0.00-0.03); Imm Gran Pct Auto 0.3 % (0.0-0.4); Lymphocytes Absolute Auto 2.1 X10*3/uL (1.2-4.9); Mean Corpuscular HGB Conc 31.6 g/dl (31.0-35.0); Mean Corpuscular Hemoglobin 30.2 pg (27.0-33.0); Mean Corpuscular Volume 95.5 fL (80.0-98.0); NRBC Abs Auto 0.000 X10*3/uL (0.0-0.012); NRBC Pct Auto 0.0 /100WBC (0.0-0.2); Platelet Count 274 X10*3/uL (160-400); Red Blood Count 4.44 X10*6/uL (4.20-5.50); White Blood Count 7.1 X10*3/uL (4.8-10.8)
[2025-06-13 14:56] LABS: Cholesterol 152 mg/dL (<200); HDL Cholesterol 53 mg/dL (>40); Triglycerides 64 mg/dL (<150)
== END 2025-06-13 08:36 | disposition home or self-care (01) ==
LOC: HO.HMGCLDS 08:35
PROVIDERS: PCP Internal Medicine; Visit Provider Internal Medicine
DX: Z13.220 Encounter for screening for lipoid disorders (principal); Z13.1 Encounter for screening for diabetes mellitus; D72.829 Elevated white blood cell count, unspecified; Z83.49 Family history of other endocrine, nutritional and metabolic diseases; Z00.01 Encounter for general adult medical examination with abnormal findings; J45.20 Mild intermittent asthma, uncomplicated
CPT/HCPCS: 36415; 80061; 82306; 82947; 83036; 84443; 85025; 96160; 99395

== ENCOUNTER 2025-06-13 08:35 | Outpatient (AMB) | payer OTHER, SELFPAY ==
--- NOTE | 2025-06-13 08:40 | MHC.PC.OV ---
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 Is last menstrual period known: Yes Last menstrual period: 05/30/25 Allergies latex Allergy (Unknown, Verified 06/13/25 09:13) unknown Medication List - Last Reconciled 06/13/25 by Olive Zimmer MD pyridoxine (vitamin B6) 100 mg PO DAILY Ventolin HFA 90 mcg/actuation (albuterol sulfate) 1 inh inhalation QID PRN NS Tobacco use date assessed: 06/13/25 Dental Screening Dental Screen Date: 06/13/25 Did you have a dental visit in the last 12 months?: No Did you have a dental problem in the last 6 months where you did not have access to dental care?: No Was dental information given to patient?: Patient has dentist HPI PE HPI Details 39-year-old lady with history kidney stones , mild intermittent asthma, here today for her physical exam. Goes to [facility], for her routine Pap and pelvic exam last done in 2022 with benign findings, had an endometrial biopsy done by Dr. Healy this year which showed benign findings as well. She is currently being followed for abnormal uterine bleeding, has an appointment for her annual OBGYN PE in June 2025 Current smoker but just 1 cigarette today, trying to quit HPI Comments History of Present Illness Details [facility] Medical History (Updated 06/13/25 @ 09:46 by Olive Zimmer MD) History of kidney stones Light cigarette smoker Vaccination declined Family history of thyroid disorder Folliculitis Eczema of both hands Mild intermittent asthma without complication Anxiety disorder Surgical History History of section Family History Father Medical history non-contributory Mother Hypothyroidism CVD (cardiovascular disease) Maternal Grandfather Diabetes mellitus Maternal Grandmother Diabetes mellitus Paternal Grandmother Diabetes mellitus Paternal Grandfather Diabetes mellitus Maternal Aunt Cerebral aneurysm Maternal Uncle Skin cancer Brother No problems noted. Brother No problems noted. Sister No problems noted. Son No problems noted. Social History Household Members: Spouse Housing: Apartment Do you presently have visiting nurse or other home services: No Alcohol intake: current Patient Tobacco Use Status: Current everyday Tobacco user Cigarettes Per Day: 1 e-Cigarette/Vaping Use: Never Used Second Hand Smoke Exposure: Yes service: No Current occupational status: employed Cognitive needs: No Hearing needs: No Vision needs: No Female Reproductive History Menstrual Age of Menarche: 11 Date of last menstrual period: 05/30/25 Questionnaire PHQ-9 Over the last 2 weeks, how often have you been bothered by any of the following problems? 1. Little interest or pleasure in doing things: not at all 2. Feeling down, depressed, or hopeless: not at all 3. Trouble falling or staying asleep, or sleeping too much: not at all 4. Feeling tired or having little energy: several days 5. Poor appetite or overeating: several days 6. Feeling bad about yourself - or that you are a failure or have let yourself or your family down: not at all 7. Trouble concentrating on things, such as reading the newspaper or watching television: not at all 8. Moving or speaking so slowly that other people could have noticed. Or the opposite - being so fidgety or restless that you have been moving around a lot more than usual: not at all 9. Thoughts that you would be better off or of hurting yourself in some way: not at all Total score: 2 Depression Screening Interpretation: Negative Depression Screening Done: Yes Source: Developed by Drs. Haroon Nance, Sanam Yepez, Jeffry Ferro and colleagues, with an educational brett from [employer]. Thrive Questionnaire Date Thrive assessed: 05/02/25 I am a: Patient What is your living situation today?: I have a steady place to live Within the past 12 months, did the food you bought not last and you didn't have the money to get more?: Never true Within the past 12 months, did you worry whether your food would run out before you got money to buy more?: Never true Do you have trouble paying for medicines?: No Do you have trouble getting transportation to medical appointments?: No Do you have trouble paying your heating and electricity bill?: No Do you have trouble taking care of your child, family member or friend?: No Do you have trouble with day-to-day activities such as bathing, preparing meals, shopping, managing finances, etc.?: No Are you currently unemployed and looking for a job?: No Are you interested in more education?: No Please select the resources that you would like help with: None Currently or been in a relationship where the following occur: No concerns reported THRIVE Score: 0 AUDIT C Alcohol Use Questionnaire (AUDIT-C) 1. How often do you have a drink containing alcohol?: Monthly or less 2. How many drinks containing alcohol do you have on a typical day when you are drinking?: 1 or 2 3. How often do you have six or more drinks on one occasion?: Never Total Score: 1 RAN-7 AMB Questionnaire RAN-7 Date RAN - 7 assessed: 05/09/25 Feeling nervous, anxious, or on edge: 1 = Several days Not being able to stop or control worryin = Several days Worrying too much about different things: 1 = Several days Trouble relaxin = Several days Being so restless that it is hard to sit still: 0 = Not at all Becoming easily annoyed or irritable: 0 = Not at all Feeling afraid as if something awful might happen: 0 = Not at all Total RAN-7 score (0-4 normal; 5-9 mild; 10-14 moderate; 15-21 severe): 4 Source: Developed by Drs. Haroon Nance, Sanam Yepez, Jeffry Ferro and colleagues, with an educational brett from [employer]. ACT Questionnaire In the past 4 weeks, how much of the time did your asthma keep you from getting as much done at work, school or at home?: None of the time During the past 4 weeks, how often have you had shortness of breath?: Not at all During the past 4 weeks, how often did your asthma symptoms wake you up at night or earlier than usual in the morning?: Not at all During the past 4 weeks, how often have you had to use your rescue inhaler or nebulizer medication?: Not at all How would you rate your asthma control during the past 4 weeks?: Well controlled Score: 24 Review of Systems Narrative Const Denies chills, Denies fatigue, Denies fever(s) and Denies malaise Eyes Details: Up-to-date with her eye exam, sees [facility] Denies change in vision ENT Reports no additional complaints Card Denies chest pain, Denies chest pain at rest, Denies edema, Denies irregular heart rhythm and Denies lightheadedness Resp Reports no additional complaints GI Denies abdominal pain, Denies melena, Denies heartburn and Denies nausea Details: Has history of kidney stones - right followed by Urology, currently asymptomatic Musc Reports no additional complaints Skin/Breast Denies breast pain, Denies breast mass, Denies change in breast shape, Denies lesions and Denies rash Neuro Reports no additional complaints Psych Reports no additional complaints Endo Reports no additional complaints and Denies fatigue [place]/Lymph Reports no additional complaints Aller/Immun Reports no additional complaints Physical exam (Primary Care) Vital Signs: Last Vital Signs Temp 97.8 F 06/13/25 08:53 Pulse 91 06/13/25 08:53 Resp 16 06/13/25 08:53 BP 120/70 06/13/25 08:53 Pulse Ox 97 06/13/25 08:53 Oxygen Delivery Method Room Air 06/13/25 08:53 BMI result Body Mass Index 31.4 Tobacco/Smoking Status: Tobacco use Status Tobacco use date assessed 06/13/25 06/13/25 08:43 Patient Tobacco Use Status Current everyday Tobacco 06/13/25 08:43 e-Cigarette/Vaping Use Never Used 06/13/25 08:43 PHQ-9: PHQ-9 Score PHQ-9: Total score 2 06/13/25 09:14 Depression Screening Interpretation: Negative Thrive Assessment: Date of Thrive Assessment Date Thrive assessed 05/02/25 06/13/25 08:43 Currently or been in a relationship where the following occur: No concerns reported Narrative Const Other: Alert oriented x3, no acute distress noted ambulatory normal gait HENMT Ears: external ears normal, TM's normal bilaterally and EAC's normal General nose exam: Normal external nose present Face and sinus: Yes face symmetric Mouth: Normal oral and palatal mucosa present and moist mucous membranes Eyes General: appearance normal, both eyes and all related structures Neck Other: Supple with no lymphadenopathy palpated Chest Chest palpation & inspection: normal inspection of the chest Breast/axilla inspection: normal inspection of the breasts Breast/axilla palpation: normal palpation of the breasts Resp Auscultation: clear to auscultation bilaterally Cardio Rate: regular rate Rhythm: regular rhythm Heart sounds: S1 normal heart sound present and S2 normal heart sound present GI Palpation (GI): Soft to palpation, nontender and no guarding Auscultation: normal bowel sounds General: Yes no CVA tenderness Back/Spine/Pelvis Back: no CVA tenderness and No back tenderness Skin Other: Tattoos covering back and arm General skin exam: no rashes or lesions noted Neuro General: gait normal, moves all extremities, Normal light touch and pain sensation and no focal motor deficits Extrem General: Yes normal to inspection, Yes full ROM, Yes no joint enlargement and Yes no pedal edema Psych Appearance: grossly normal and well kempt Mental Status: mental status grossly normal Speech and movement: Normal speech and movement present Affect: normal affect Coding Level of Care Code Est Pt Prev Care 18-39y([id number]) Diagnoses Annual visit for general adult medical examination with abnormal findings Z00.01 Mild intermittent asthma without complication J45.20 Assessment & Plan Assessment & Plan (1) Annual visit for general adult medical examination with abnormal findings: Code(s): Z00.01 - Encounter for general adult medical examination with abnormal findings Plan: Will check appropriate labs. Recommended dental visit every 6 months and is up-to-date with her regular eye exams sees [facility] Take adequate calcium in diet and vitamin-D 3 at 2000 IU per cap once a day, in addition to weight-bearing exercises to help maintain good muscle tone and weight control. Instructed to do self-breast exam, and recommended to get yearly mammogram, starting at age 40. Patient does not want to get any vaccines. She sees [facility] for her routine Pap and pelvic exam, has an appointment already scheduled for 07/18/2025 (2) Mild intermittent asthma without complication: Code(s): J45.20 - Mild intermittent asthma, uncomplicated Category: Medical Plan: Has been Ritalin inhaler, which she rarely needs to use. Patient encouraged to quit smoking. Declined vaccines Plan
[2025-06-13 08:53] VITALS: BP 120/70; PULSE 91; RESP 16; TEMP 36.6; O2SAT 97; BMI 31.4
--- OUTSIDE RECORDS SUMMARY | 2025-06-13 09:11 | XMS_ITS | Clinical Summary ---
Author Organization [facility] ity Address [address] [place] [address] Care Team Providers Care Technical Sales Associate Name Role Phone Unavailable Primary Care Provider [...]
== END 2025-06-13 09:36 | disposition home or self-care (01) ==
LOC: HO.HMCC 08:36
PROVIDERS: PCP Internal Medicine; Visit Provider Internal Medicine
DX: Z00.01 Encounter for general adult medical examination with abnormal findings (principal); J45.20 Mild intermittent asthma, uncomplicated